=== PATIENT | female | born 1970 | race African-American/Black ===

== ENCOUNTER 2019-09-20 13:25 | Emergency (ER) | payer OTHER ==
[2019-09-20] MEDS ORDERED: Ondansetron PF 4 MG/2 ML Vial ONE (14:20)
[2019-09-20] MEDS ORDERED: Morphine 4 MG/ML VIAL ONE (14:20)
[2019-09-20 14:30] LABS: #Eosinphils 0.1 thou/uL (0.0-0.7); #Lymphocytes 1.7 thou/uL (1.20-3.40); #Monocytes 0.6 thou/uL (0.11-0.59); #Neutrophils 5.1 thou/uL (1.40-6.50); %Basophils 0.4 % (0.0-1.0); %Eosinophils 1.3 % (0.0-10.0); %Monocytes 8.1 % (0.0-10.0); %Neutrophils 67.3 % (42.0-75.0); Hemoglobin 12.6 g/dL (12.0-16.0); Mean Corpuscular HGB CONC 33.6 g/dL (32.0-36.0); Mean Corpuscular Hemoglobin 34.5 pg (27.0-31.0); Mean Platelet Volume 7.2 fL (7.4-10.4); Platelet Count 244 thou/uL (130-400); RBC Distribution Width 14.3 % (11.5-14.5); Red Blood Cell (RBC) Count 3.66 mill/uL (4.20-5.40); White Blood Cell (WBC) Count 7.5 thou/uL (4.8-10.8)
[2019-09-20 14:51] LABS: ALT (SGPT) 19 U/L (8-55); AST (SGOT) 17 U/L (5-34); Albumin 3.7 g/dL (3.5-5.0); Alkaline Phosphatase 72 U/L (40-110); Anion Gap 14 mmol/L (10-20); BUN (Urea Nitrogen) 10 mg/dL (7.0-18.7); Bilirubin, Total 0.6 mg/dL (0.2-1.2); Calc. Creatinine Clearance 0 mL/min (70-130); Calcium 8.9 mg/dL (7.8-10.44); Carbon Dioxide 26 mmol/L (22-29); Chloride 103 mmol/L (98-107); Estimated GFR-MDRD 64; Globulin 5.2 g/dL (2.4-3.5); Glucose 154 mg/dL (70-105); Protein, Total 8.9 g/dL (6.0-8.3); Sodium 139 mmol/L (136-145)
--- NOTE | 2019-09-20 14:54 | ULT ---
EXAM: Right lower extremity venous Doppler PROVIDED CLINICAL HISTORY: Pain FINDINGS: Grayscale and color Doppler sonography with spectral analysis was performed of the right common femor al, femoral, popliteal, posterior tibial, greater saphenous and profunda femoral veins. The evaluated venous structures demonstrate a normal sonographic appearance. IMPRESSION: No sonographic evidence for right lower extremity deep venous thrombosis.
--- NOTE | 2019-09-20 15:13 | RAD ---
EXAM: XR Foot Rt 3 View STANDARD PROVIDED CLINICAL HISTORY: Pain FINDINGS: There is no evidence for fracture or other acute osseous abnormality. Alignment appears anatomic. Silvia nt spaces appear preserved. Postoperative changes involving the right ankle are noted. IMPRESSION: No evidence for an acute osseous abnormality. If there is persistent clinical concern, conservative m anagement and follow-up imaging advised.
[2019-09-20] MEDS ORDERED: HYDROcodone/Acetaminophen 10/325 mg Tablet ONE (16:49)
== END 2019-09-20 17:39 | disposition home or self-care (01) ==
LOC: ERS 13:25
DX: L03.115 Cellulitis of right lower limb (principal); E11.9 Type 2 diabetes mellitus without complications; J45.909 Unspecified asthma, uncomplicated; E66.9 Obesity, unspecified; I10 Essential (primary) hypertension; B20 Human immunodeficiency virus [HIV] disease; F31.9 Bipolar disorder, unspecified; F20.9 Schizophrenia, unspecified; Z87.891 Personal history of nicotine dependence; Z79.899 Other long term (current) drug therapy; Z79.82 Long term (current) use of aspirin; Z79.84 Long term (current) use of oral hypoglycemic drugs
CPT/HCPCS: 80053; 85025; 85652; 86140; 96374; 96375; J2270; J2405

== ENCOUNTER 2019-10-03 14:04 | Inpatient (IN) | payer OTHER ==
[2019-10-03 15:08] LABS: #Lymphocytes 2.1 thou/uL (1.20-3.40); #Monocytes 0.7 thou/uL (0.11-0.59); #Neutrophils 3.4 thou/uL (1.40-6.50); %Basophils 0.8 % (0.0-1.0); %Eosinophils 0.6 % (0.0-10.0); %Lymphocytes 33.3 % (21.0-51.0); %Monocytes 10.9 % (0.0-10.0); %Neutrophils 54.4 % (42.0-75.0); Mean Corpuscular HGB CONC 32.3 g/dL (32.0-36.0); Mean Corpuscular Hemoglobin 33.4 pg (27.0-31.0); Mean Platelet Volume 7.7 fL (7.4-10.4); Platelet Count 391 thou/uL (130-400); RBC Distribution Width 13.8 % (11.5-14.5); Red Blood Cell (RBC) Count 4.17 mill/uL (4.20-5.40); White Blood Cell (WBC) Count 6.2 thou/uL (4.8-10.8)
[2019-10-03] MEDS ORDERED: Cefepime 2 GM VIAL ONE (15:10)
[2019-10-03 15:29] LABS: ALT (SGPT) 29 U/L (8-55); AST (SGOT) 28 U/L (5-34); Albumin 3.7 g/dL (3.5-5.0); Alkaline Phosphatase 70 U/L (40-110); Anion Gap 15 mmol/L (10-20); BUN (Urea Nitrogen) 15 mg/dL (7.0-18.7); Bilirubin, Total 0.5 mg/dL (0.2-1.2); Calc. Creatinine Clearance 0 mL/min (70-130); Calcium 8.9 mg/dL (7.8-10.44); Carbon Dioxide 27 mmol/L (22-29); Chloride 101 mmol/L (98-107); Estimated GFR-MDRD 49; Globulin 5.5 g/dL (2.4-3.5); Glucose 99 mg/dL (70-105); Potassium 3.8 mmol/L (3.5-5.1); Protein, Total 9.2 g/dL (6.0-8.3); Sodium 139 mmol/L (136-145)
--- NOTE | 2019-10-03 15:49 | RAD ---
Exam: XR Foot Rt 3 View STANDARD HISTORY: Extreme right foot pain. Patient recently diagnosed with right foot cellulitis. COMPARISON: 09/20/2019 FINDINGS: Postoperative changes again involving the right ankle are seen and unchanged. No fracture or dislocation is identified. Mild degenerative changes are seen involving the midfoot. N o osseous destruction is visualized. Subcutaneous soft tissue swelling is seen at the dorsal medial aspect of the midfoot and at the ankle. IMPRESSION: Subcutaneous soft tissue swelling which may be related to patient's history of cellulitis in the lily ect clinical scenario. No acute osseous abnormality is seen, and views of the right foot are overall unchanged compared to the recent study.
--- NOTE | 2019-10-03 15:51 | RAD ---
CHEST 1 VIEW: Date: 10/03/2019 HISTORY: Altered mental status. Right foot cellulitis. FINDINGS: Large body habitus considerably lowers the sensitivity of this study. Minimal diffuse increased opaci ty changes overlying the right and left lower lung zones, but this appears to be stable when compared to the 01/11/2014 study. No evidence for significant new process. IMPRESSION: Some minimal nonspecific increased markings and increased density over the infrahilar regions bilater ally, but showing little change from the prior study. If patient has symptoms of pneumonia, I would s uggest consideration for short-term follow-up study. POS: [facility]
[2019-10-03 15:56] LABS: Bacteria/HPF None Seen HPF (None Seen); Bilirubin Negative (Negative); Blood, Urine Negative (Negative); Clarity Clear (Clear); Glucose, Urine (Dipstick) Normal (Negative); Leukocyte Negative Leu/uL (Negative); Nitrite Negative (Negative); Protein, Urine (Dipstick) 70 mg/dL (Neg-Trace); RBC/HPF 0-3 HPF (0-3); WBC/HPF 0-3 HPF (0-3)
[2019-10-03] MEDS ORDERED: Morphine 4 MG/ML VIAL ONE (16:29)
[2019-10-03] MEDS ORDERED: Ondansetron ODT 4 MG TAB SL PRN (19:45)
[2019-10-03] MEDS ORDERED: Ondansetron PF 4 MG/2 ML Vial IVP PRN (19:45)
[2019-10-03] MEDS ORDERED: cefTRIAXone\\ROCEPHIN 2 GM in Sodium Chloride 0.9% 100 ML IVPB SCH (20:00)
[2019-10-03 20:27] VITALS: BMI 70.1
--- NOTE | 2019-10-03 20:37 | PDOC.HHP ---
Hospitalist HPI - History of Present Illness R foot pain History of Present Illness: Patient is a 49 year old female with PMH asthma, HIV, hepatitis C, HTN, T2DM, seizure disorder who presents to ED for R foot pain, recently diagnosed with R foot cellulitis. She was being treated as outpatient with clindamycin. Reports nausea, vomiting, cough. In ED they also noted open abdominal wound in midline which patient reports is C section scar, she was unaware of wound. Foot w/ erythema, edema, patient recieved vancomycin and cefepime and recommended for admission. She has history of HCV, HIV and distant drug abuse which she has quit for last 6 years. On HIV meds, WBC 6.2. Hospitalist ROS - Review of Systems Constitutional: denies: fever, chills, sweats, weakness, malaise, other Eyes: denies: pain, vision change, conjunctivae inflammation, eyelid inflammation, redness, other ENT: denies: ear pain, ear discharge, nose pain, nose discharge, nose congestion , mouth pain, mouth swelling, throat pain, throat swelling, other Respiratory: denies: cough, dry, shortness of breath, hemoptysis, SOB with excertion, pleuritic pain, sputum, wheezing, other Cardiovascular: denies: chest pain, palpitations, orthopnea, paroxysmal noc. dyspnea, edema, light headedness, other Gastrointestinal: denies: nausea, vomiting, abdominal pain, diarrhea, constipation, melena, hematochezia, other Genitourinary: denies: dysuria, frequency, incontinence, hematuria, retention, other Musculoskeletal: reports: foot pain Skin: reports: rash (on R foot), lesions. denies: kate, bruising, other Neurological: denies: weakness, numbness, incoordination, change in speech, confusion, seizures, other All other systems reviewed; all pertinent +/- noted in HPI/Subj - Medication Medications: Active Medications Generic Name Dose Route Start Last Admin Trade Name Freq PRN Reason Stop Dose Admin Ceftriaxone Sodium 2 gm/ 100 mls @ 200 mls/hr 10/03/19 20:00 10/03/19 20:07 Sodium Chloride IVPB 10/04/19 05:20 100 mls Q24HR MELITA Administration Ondansetron HCl 4 mg 10/03/19 19:45 10/03/19 20:07 Zofran IVP 10/04/19 05:20 4 mg Q6H PRN Administration Nausea/Vomiting cyclobenzaprine SunOct 03, 2019 16:36 BEVERLY Gutierrez [place] Brooke tablet : Strength - 10 mg : ORAL Patient Dose: 1 tab(s) Oral once a day (at bedtime). Aceta-Codeine SunOct 03, 2019 16:37 BEVERLY Gutierrez [place] Brooke tablet : Strength - 300 mg-30 mg : ORAL Patient Dose: 1 tab(s) Oral every 4 hours prn. amLODIPine SunOct 03, 2019 16:39 BEVERLY Gutierrez [place] Brooke TABLET : Strength - 5 mg : ORAL Patient Dose: 5 mg Oral once a day. lisinopril SunOct 03, 2019 16:39 BEVERLY Gutierrez [place] TABLET : Strength - 10 mg : ORAL Patient Dose: 20 mg Oral once a day. glyBURIDE oral SunOct 03, 2019 16:39 BEVERLY Gutierrez [place] TABLET : Strength - 5 mg : ORAL Patient Dose: 10 mg Oral 2 times a day. metFORMIN SunOct 03, 2019 16:39 BEVERLY Gutierrez [place] Brooke tablet : Strength - 850 mg : ORAL Patient Dose: 1 tab(s) Oral. Aspirin [facility] SunOct 03, 2019 16:39 BEVERLY Gutierrez [place] Brooke TABLET, CHEWABLE : Strength - 81 mg : ORAL Patient Dose: 1 tab(s) Oral once a day. pantoprazole oral SunOct 03, 2019 16:39 BEVERLY Gutierrez [place] Brooke TABLET, DELAYED RELEASE (ENTERIC COATED) : Strength - 40 mg : ORAL Patient Dose: 1 tab(s) Oral once a day. clindamycin HCl SunOct 03, 2019 16:39 BEVERLY Gutierrez [place] Brooke CAPSULE : Strength - 150 mg : ORAL Patient Dose: 1 tab(s) Oral every 6 hours. ibuprofen SunOct 03, 2019 16:40 BEVERLY Gutierrez [place] Brooke tablet : Strength - 800 mg : ORAL Patient Dose: 1 tab(s) Oral. atorvastatin SunOct 03, 2019 16:41 BEVERLY Gutierrez [place] Brooke tablet : Strength - 40 mg : ORAL Patient Dose: 1 tab(s) Oral once a day. Genvoya SunOct 03, 2019 16:42 BEVERLY Gutierrez [place] Brooke tablet : Strength - 150 mg-150 mg-200 mg-10 mg : ORAL Patient Dose: 1 tab(s) Oral once a day. Hospitalist History - Past Medical History Other Medical History: asthma, HIV, hepatitis C, HTN, T2DM, seizure disorder - Past Surgical History Other Surgical History: Surgical history of section, Surgical history of orthopedic surgery, right ankle, Notes: plate, Surgical history of cholecystectomy, Surgical history of tubal ligation. 09/20/19. - Family History Family History: reports: no pertinent history - Social History Other Social History: Patient denies alcohol use, , Patient is a former drug user, abused cocaine, Drug history notes: DRUG FREE FOR 6 YEARS, DIPS SNUFF/ NO SMOKING - PAST SMOKER 19 YEARS - Exam General Appearance: NAD, awake alert Eye: PERRL, anicteric sclera ENT: normocephalic atraumatic, no oropharyngeal lesions, moist mucosa Neck: supple, symmetric, no JVD, no thyromegaly, no lymphadenopathy, no carotid bruit Heart: RRR, no murmur, no gallops, no rubs, normal peripheral pulses Respiratory: CTAB, no wheezes, no rales, no ronchi, normal chest expansion, no tachypnea, normal percussion Gastrointestinal: soft, non-tender, non-distended, normal bowel sounds, no palpable masses, no hepatomegaly, no splenomegaly, no bruit Extremities: no cyanosis, no clubbing, no edema Extremities - other findings: R foot w/ jessica rash on dorsum no ulcer per patient not spreading Skin: normal turgor, no lesions, no rashes Neurological: cranial nerve grossly intact, normal sensation to touch, no weakness, no focal deficits, no new deficit Musculoskeletal: normal tone, normal strength, no muscle wasting Psychiatric: normal affect, normal behavior, A&O x 3 Hospitalist Results - Labs Result Diagrams: 10/03/19 14:54 10/03/19 14:54 Lab results: WBC 6.2 thou/uL (4.8-10.8) 10/03/19 14:54 Hgb 14.0 g/dL (12.0-16.0) 10/03/19 14:54 Hct 43.2 % (36.0-47.0) 10/03/19 14:54 MCV 103.0 fL (78.0-98.0) H 10/03/19 14:54 Plt Count 391 thou/uL (130-400) 10/03/19 14:54 Neutrophils % 54.4 % (42.0-75.0) 10/03/19 14:54 Sodium 139 mmol/L (136-145) 10/03/19 14:54 Potassium 3.8 mmol/L (3.5-5.1) 10/03/19 14:54 Chloride 101 mmol/L (98-107) 10/03/19 14:54 Carbon Dioxide 27 mmol/L (22-29) 10/03/19 14:54 BUN 15 mg/dL (7.0-18.7) 10/03/19 14:54 Creatinine 1.38 mg/dL (0.6-1.1) H 10/03/19 14:54 Glucose 99 mg/dL (70-105) 10/03/19 14:54 Lactic Acid 1.0 mmol/L (0.5-2.2) 10/03/19 18:00 Calcium 8.9 mg/dL (7.8-10.44) 10/03/19 14:54 Total Bilirubin 0.5 mg/dL (0.2-1.2) 10/03/19 14:54 AST 28 U/L (5-34) 10/03/19 14:54 ALT 29 U/L (8-55) 10/03/19 14:54 Alkaline Phosphatase 70 U/L (40-110) 10/03/19 14:54 Serum Total Protein 9.2 g/dL (6.0-8.3) H 10/03/19 14:54 Albumin 3.7 g/dL (3.5-5.0) 10/03/19 14:54 Urine Ketones Negative mg/dL (Negative) 10/03/19 15:22 Urine Blood Negative (Negative) 10/03/19 15:22 Urine Nitrite Negative (Negative) 10/03/19 15:22 Ur Leukocyte Esterase Negative Daljit/uL (Negative) 10/03/19 15:22 Urine RBC 0-3 HPF (0-3) 10/03/19 15:22 Urine WBC 0-3 HPF (0-3) 10/03/19 15:22 Ur Squamous Epith Cells 4-6 HPF (0-3) A 10/03/19 15:22 Urine Bacteria None Seen HPF (None Seen) 10/03/19 15:22 Additional comment: VITAL SIGNS SunOct 03, 2019:06 BEVERLY Gutierrez, Mara Barnett BP: 118/79 MAP: 92 Pulse: 103 Resp: 20 Temp: 99.3 (Axillary) Pain: 3 O2 sat: 93 on (Room Air) Time: 10/03/2019 18:06. RADIOLOGY SunOct 03, 2019 15:53 MD Ayla, Gilbert XR Foot Rt 3 View STANDARD Observe DT: SunOct 03, 2019 14:37 [email or web address] Exam: XR Foot Rt 3 View STANDARD HISTORY: Extreme right foot pain. Patient recently diagnosed with right foot cellulitis. COMPARISON: 09/20/2019 FINDINGS: Postoperative changes again involving the right ankle are seen and unchanged. No fracture or dislocation is identified. Mild degenerative changes are seen involving the midfoot. N o osseous destruction is visualized. Subcutaneous soft tissue swelling is seen at the dorsal medial aspect of the midfoot and at the ankle. IMPRESSION: Subcutaneous soft tissue swelling which may be related to patients history of cellulitis in the lily ect clinical scenario. No acute osseous abnormality is seen, and views of the right foot are overall unchanged compared to the recent study. - EKG Interpretation EKG: NSR 98 bpm nonspecific t wave changes Hospitalist H&P A/P - Plan Plan: Patient is a 49 year old female with PMH asthma, HIV, hepatitis C, HTN, T2DM, seizure disorder who presents to ED for R foot pain. # persistent R foot nonpurulent cellulitis - stable in appearance but failing to resolve and with severe pain limiting ability to manage as outpatient, patient has been on 2 weeks of PO clindamycin without improvement. - admit to floor - CT R foot w/ contrast - follow up CD4 and HIV viral load, if under [id number] consider ID consult - yady rash w/ skin marker and monitor for growth daily - continue vancomycin and unasyn # DM - continue metformin, ssi # dehisced abdominal wound - from C section - consult general surgery and wound care team # HIV - continue home HAART, follow up cd4/viral load # HTN - continue home meds # history of drug abuse - deescalate pain meds in reasonable amont of time expected for cellulitis recovery
[2019-10-03] MEDS ORDERED: Ibuprofen 800 MG TAB PO PRN (21:58)
[2019-10-03] MEDS ORDERED: Dextrose 50% Abboject 50 ML SYRINGE SLOW IVP PRN (22:26)
[2019-10-03] MEDS ORDERED: Dextrose 5% in Water 1,000 ML IV PRN (22:26)
[2019-10-03] MEDS ORDERED: Bisacodyl 5 MG TAB PO PRN (22:32)
[2019-10-03] MEDS ORDERED: Acetaminophen 325 MG TAB PO PRN (22:32)
[2019-10-03] MEDS ORDERED: Senokot S 8.6-50 MG TAB PO PRN (22:32)
[2019-10-03] MEDS ORDERED: Vancomycin HCl 1 GM in Sodium Chloride 0.9% 250 ML 300 ML IVPB SCH (22:45)
[2019-10-03] MEDS: Ampicillin/Sulbactam 3 GM in Sodium Chloride 0.9% 100 ML IVPB SCH (23:43)
[2019-10-04] MEDS: Ampicillin/Sulbactam 3 GM in Sodium Chloride 0.9% 100 ML IVPB SCH ×3 (05:25→21:15)
[2019-10-04 06:21] LABS: #Basophils 0.1 thou/uL (0.0-0.2); #Lymphocytes 1.4 thou/uL (1.20-3.40); #Monocytes 0.6 thou/uL (0.11-0.59); %Basophils 1.4 % (0.0-1.0); %Eosinophils 0.4 % (0.0-10.0); %Lymphocytes 34.1 % (21.0-51.0); %Monocytes 13.6 % (0.0-10.0); %Neutrophils 50.6 % (42.0-75.0); Hemoglobin 11.6 g/dL (12.0-16.0); Mean Corpuscular HGB CONC 31.5 g/dL (32.0-36.0); Mean Platelet Volume 7.5 fL (7.4-10.4); Platelet Count 348 thou/uL (130-400); Red Blood Cell (RBC) Count 3.53 mill/uL (4.20-5.40)
[2019-10-04 06:45] LABS: Anion Gap 13 mmol/L (10-20); BUN (Urea Nitrogen) 16 mg/dL (7.0-18.7); Calc. Creatinine Clearance 170 mL/min (70-130); Calcium 7.6 mg/dL (7.8-10.44); Carbon Dioxide 24 mmol/L (22-29); Chloride 105 mmol/L (98-107); Estimated GFR-MDRD 59; Glucose 121 mg/dL (70-105); Potassium 3.7 mmol/L (3.5-5.1); Sodium 138 mmol/L (136-145)
--- NOTE | 2019-10-04 08:22 | RAD ---
PORTABLE CHEST ONE VIEW: HISTORY: Hypoxia. Chest pain. COMPARISON: 10/03/2019 FINDINGS: Large body habitus lowers the sensitivity of this study. There is bilateral vascular congestion. No c onfluent pneumonia or overt pleural effusion. IMPRESSION: Bilateral vascular congestion. Exam limited by large body habitus. POS: [facility]
[2019-10-04] MEDS ORDERED: glyBURIDE 5 MG TAB PO SCH (09:00)
[2019-10-04] MEDS ORDERED: metFORMIN 850 MG TAB PO SCH (09:00)
--- NOTE | 2019-10-04 10:03 | CT ---
CT RIGHT LOWER EXTREMITY WITH IV CONTRAST: HISTORY: Cellulitis for two weeks. History of prior ankle surgery. FINDINGS: There is some diffuse subcutaneous fat stranding around the foot, evidence for cellulitis versus nons pecific edema. No evidence for a drainable abscess. Calcaneal plantar and Achilles enthesophytes. Met al plate and screws stabilize the lateral malleolus with an internal fixation screw noted within the distal tibia, which is broken off in the tibia but stable from prior plain film. No acute fracture or dislocation or other significant acute osseous process. IMPRESSION: 1. Nonspecific diffuse subcutaneous edema/cellulitis. 2. Arthrosis and degenerative changes. 3. Postoperative changes of the ankle and distal fibula. 4. No drainable abscess. POS: [facility]
[2019-10-04] MEDS: Aspirin 81 mg Enteric Coated Tablet PO SCH (10:29)
[2019-10-04] MEDS: Atorvastatin Calcium 40 MG TAB PO SCH (10:29)
[2019-10-04] MEDS: Amlodipine 5 MG TAB PO SCH (10:30)
[2019-10-04] MEDS: HYDROcodone/Acetaminophen 5/325 mg Tablet PO PRN ×3 (10:31→20:59)
[2019-10-04] MEDS: Enoxaparin Sodium 40 MG/0.4 ML SYRINGE SC SCH (10:33)
[2019-10-04] MEDS ORDERED: Iopamidol-370 76% 500 ML 1 ML ONE (14:38)
--- NOTE | 2019-10-04 15:01 | PDOC.HOSPP ---
- Subjective Subjective: Seen and examined. Lower extremity wounds with cellulitis. Reviewed CT scan and there is no trainable abscess or obvious infection the bone. Patient's body habitus would limit MRI. There is also a wound on her abdomen inferior to the umbilicus there is a large skin crease and fold and there is a foul-smelling sticky consistency in between the creases. When spread apart there is a minor separation of the skin that seems very superficial. Surgery and wound care consultation has been requested. - Objective Vital Signs & Weight: Vital Signs (12 hours) Temp Pulse Resp BP Pulse Ox 10/04/19 11:29 97.9 F 90 20 121/79 92 L 10/04/19 07:24 97.5 F L 88 20 106/68 91 L 10/04/19 04:00 97.9 F 96 20 103/67 Weight Admit Weight 408 lb 11.2 oz Weight 408 lb 11.2 oz I&O: 10/03/19 10/04/19 10/05/19 06:59 06:59 06:59 Intake Total 500 Balance 500 Result Diagrams: 10/04/19 05:41 10/04/19 05:41 Additional Labs: Accuchecks 10/04/19 10/04/19 11:29 04:31 POC Glucose 153 H 127 H Radiology Reviewed by me: Yes Hospitalist ROS - Review of Systems All other systems reviewed; all pertinent +/- noted in HPI/Subj - Medication Medications: Active Medications Generic Name Dose Route Start Last Admin Trade Name Freq PRN Reason Stop Dose Admin Hydrocodone Bitart/Acetaminophen 2 tab 10/03/19 22:32 10/04/19 10:31 Byron 5/325 PO 2 tab Q4H PRN Administration Severe Pain (7-10) Amlodipine Besylate 5 mg 10/04/19 09:00 10/04/19 10:30 Norvasc PO 5 mg DAILY MELITA Administration Aspirin 81 mg 10/04/19 09:00 10/04/19 10:29 Ecotrin PO 81 mg DAILY MELITA Administration Atorvastatin Calcium 40 mg 10/04/19 09:00 10/04/19 10:29 Lipitor PO 40 mg DAILY MELITA Administration Enoxaparin Sodium 40 mg 10/04/19 09:00 10/04/19 10:33 Lovenox SC 40 mg 0900 MELITA Administration Ampicillin Sodium/Sulbactam 100 mls @ 200 mls/hr 10/03/19 23:59 10/04/19 05: 25 Sodium 3 gm/ Sodium Chloride IVPB 100 mls Q6HR MELITA Administration Pantoprazole Sodium 40 mg 10/04/19 09:00 10/04/19 10:30 Protonix PO 40 mg DAILY MELITA Administration - Exam General Appearance: NAD, awake alert Eye: anicteric sclera ENT: normocephalic atraumatic, moist mucosa Neck: supple, symmetric, no lymphadenopathy Heart: no murmur, no gallops, no rubs Respiratory: CTAB, no wheezes, no rales, no ronchi, normal chest expansion, no tachypnea Gastrointestinal: soft, non-tender, non-distended, no guarding, no rigidity Gastrointestinal - other findings: Superficial linear breakdown of skin at the crease where linea alba present Extremities: 1+ LE edema Skin: no lesions, no rashes Skin - other findings: Foot cellulitis seems smaller than drawn on markings Neurological: cranial nerve grossly intact, no focal deficits Musculoskeletal: generalized weakness Psychiatric: normal affect, normal behavior, A&O x 3 Hosp A/P (1) Cellulitis and abscess of foot Code(s): L03.119 - CELLULITIS OF UNSPECIFIED PART OF LIMB; L02.619 - CUTANEOUS ABSCESS OF UNSPECIFIED FOOT Status: Acute (2) Skin wound from surgical incision Code(s): T14.8XXA - OTHER INJURY OF UNSPECIFIED BODY REGION, INITIAL ENCOUNTER Status: Acute (3) HIV (human immunodeficiency virus infection) Status: Acute (4) Hepatitis C antibody positive in blood Code(s): R76.8 - OTHER SPECIFIED ABNORMAL IMMUNOLOGICAL FINDINGS IN SERUM Status: Acute (5) CKD (chronic kidney disease) stage 3, GFR 30-59 ml/min Status: Chronic (6) DM2 (diabetes mellitus, type 2) Status: Chronic (7) HTN (hypertension) Code(s): I10 - ESSENTIAL (PRIMARY) HYPERTENSION Status: Chronic Qualifiers: Hypertension type: essential hypertension Qualified Code(s): I10 - Essential (primary) hypertension (8) Morbid obesity Code(s): E66.01 - MORBID (SEVERE) OBESITY DUE TO EXCESS CALORIES Status: Chronic
--- NOTE | 2019-10-04 16:48 | PDOC.GSCN ---
Surgery Consult: HPI - Consult details Date: 10/04/19 Time: 11:30 Reason for consult: wound care History of present illness: 10/04/19 16:47 49yo morbidly obese female admitted for right foot pain noted to have a tear in a crease of her pannus. The patient was unaware of the wound, and denies any traumatic incidents. Surgery Consult: ROS - Review of Systems All systems: 10 systems reviewed and no additional complaints unless stated below. Surgery Consult: PMH Past Medical History: Diabetes Super morbid obesity asthma HIV hepatitis C hypertension seizure disorder Past Surgical History: , cholecystectomy, bone spur removal right foot, tubal ligation - Past Family History Family history: reviewed and not pertinent - Past Social History Smoking Status: Former smoker Alcohol Use: none Drug Use History: cocaine, other (history of cocaine abuse) Surgery Consult: Exam - Vital signs Vital signs: Vital Signs - Most Recent Temp Pulse Resp BP Pulse Ox 97.8 F 94 18 119/78 98 10/04/19 16:00 10/04/19 16:00 10/04/19 16:00 10/04/19 16:00 10/04/19 16:00 - Physical Exam General: obese Eye: normal ocular movement, PERRL Neck: no lymphadectomy, no masses, no isauro distention, trachea midline Respiratory: clear to auscultation Abdomen: non tender, soft, other (bilobed pannus from previous midline incision. Superficial skin tear at crease with no evidence of infection.) Hernia: none Integumentary: no abnormal pigmentation, no rash Neurologic: normal coordination, normal sensation Musculoskeletal: other (normal bulk and tone) Psychiatric: oriented to time, oriented to person, oriented to place Surgery Consult: Meds - Medications Medications: Current Medications Acetaminophen (Tylenol) 650 mg PO Q4H PRN PRN Reason: Headache/Fever/Mild Pain (1-3) Hydrocodone Bitart/Acetaminophen ([place] 5/325) 1 tab PO Q4H PRN PRN Reason: Moderate Pain (4-6) Hydrocodone Bitart/Acetaminophen ([place] 5/325) 2 tab PO Q4H PRN PRN Reason: Severe Pain (7-10) Last Admin: 10/04/19 10:31 Dose: 2 tab Amlodipine Besylate (Norvasc) 5 mg PO DAILY MELITA Last Admin: 10/04/19 10:30 Dose: 5 mg Aspirin (Ecotrin) 81 mg PO DAILY [facility] Last Admin: 10/04/19 10:29 Dose: 81 mg Atorvastatin Calcium (Lipitor) 40 mg PO DAILY [facility] Last Admin: 10/04/19 10:29 Dose: 40 mg Bisacodyl (Dulcolax) 10 mg PO DAILYPRN PRN PRN Reason: Constipation Cyclobenzaprine HCl (Flexeril) 10 mg PO HS PRN PRN Reason: Muscle Spasm Dextrose/Water (Dextrose 50%) 25 gm SLOW IVP PRN PRN PRN Reason: Hypoglycemia Enoxaparin Sodium (Lovenox) 40 mg SC 0900 [facility] Last Admin: 10/04/19 10:33 Dose: 40 mg Glucagon (Glucagon) 1 mg IM PRN PRN PRN Reason: Hypoglycemia Dextrose/Water (D5w) 1,000 mls @ 0 mls/hr IV .Q0M PRN PRN Reason: Hypoglycemia Ampicillin Sodium/Sulbactam (Sodium 3 gm/ Sodium Chloride) 100 mls @ 200 mls/ hr IVPB Q6HR [facility] Last Admin: 10/04/19 15:08 Dose: 100 mls Vancomycin HCl 2 gm/ Sodium (Chloride) 500 mls @ 250 mls/hr IVPB 1500 [facility] Stop: 10/09/19 23:59 Insulin Human Lispro (Humalog) 0 units SC .MILD SLIDING SCALE PRN PRN Reason: Mild Correctional Scale Lisinopril (Zestril) 20 mg PO QPM [facility] Miscellaneous Medication (Pharmacy To Dose) 1 each IVPB PRN PRN PRN Reason: Pharmacy to dose Stop: 10/09/19 23:59 Pantoprazole Sodium (Protonix) 40 mg PO DAILY [facility] Last Admin: 10/04/19 10:30 Dose: 40 mg Elviteg/Cob/Emtri/Tenof Alafen [ Genvoya Tablet] 1 each PO HS [facility] Senna/Docusate Sodium (Senokot S) 2 tab PO BIDPRN PRN PRN Reason: Constipation - Allergies Allergies/Adverse Reactions: Allergies Allergy/AdvReac Type Severity Reaction Status Date / Time No Known Drug Allergies Allergy Verified 07/09/16 22:35 Surgery Consult: Results - Labs Result Diagrams: 10/04/19 05:41 10/04/19 05:41 Lab results: Laboratory Results WBC 4.0 thou/uL (4.8-10.8) L 10/04/19 05:41 RBC 3.53 mill/uL (4.20-5.40) L 10/04/19 05:41 Hgb 11.6 g/dL (12.0-16.0) L 10/04/19 05:41 Hct 36.8 % (36.0-47.0) 10/04/19 05:41 MCV 104.0 fL (78.0-98.0) H 10/04/19 05:41 MCH 33.0 pg (27.0-31.0) H 10/04/19 05:41 MCHC 31.5 g/dL (32.0-36.0) L 10/04/19 05:41 RDW 14.0 % (11.5-14.5) 10/04/19 05:41 Plt Count 348 thou/uL (130-400) 10/04/19 05:41 MPV 7.5 fL (7.4-10.4) 10/04/19 05:41 Neutrophils % 50.6 % (42.0-75.0) 10/04/19 05:41 Lymphocytes % 34.1 % (21.0-51.0) 10/04/19 05:41 Monocytes % 13.6 % (0.0-10.0) H 10/04/19 05:41 Eosinophils % 0.4 % (0.0-10.0) 10/04/19 05:41 Basophils % 1.4 % (0.0-1.0) H 10/04/19 05:41 Neutrophils # 2.0 thou/uL (1.40-6.50) 10/04/19 05:41 Lymphocytes # 1.4 thou/uL (1.20-3.40) 10/04/19 05:41 Monocytes # 0.6 thou/uL (0.11-0.59) H 10/04/19 05:41 Eosinophils # 0.0 thou/uL (0.0-0.7) 10/04/19 05:41 Basophils # 0.1 thou/uL (0.0-0.2) 10/04/19 05:41 Sodium 138 mmol/L (136-145) 10/04/19 05:41 Potassium 3.7 mmol/L (3.5-5.1) 10/04/19 05:41 Chloride 105 mmol/L (98-107) 10/04/19 05:41 Carbon Dioxide 24 mmol/L (22-29) 10/04/19 05:41 Anion Gap 13 mmol/L (10-20) 10/04/19 05:41 BUN 16 mg/dL (7.0-18.7) 10/04/19 05:41 Creatinine 1.17 mg/dL (0.6-1.1) H 10/04/19 05:41 Estimated GFR (MDRD) 59 10/04/19 05:41 Glucose 121 mg/dL (70-105) H 10/04/19 05:41 POC Glucose 153 mg/dL (70-110) H 10/04/19 11:29 Lactic Acid 1.0 mmol/L (0.5-2.2) 10/03/19 18:00 Calcium 7.6 mg/dL (7.8-10.44) L 10/04/19 05:41 Total Bilirubin 0.5 mg/dL (0.2-1.2) 10/03/19 14:54 AST 28 U/L (5-34) 10/03/19 14:54 ALT 29 U/L (8-55) 10/03/19 14:54 Alkaline Phosphatase 70 U/L (40-110) 10/03/19 14:54 B-Natriuretic Peptide Less than 10.0 pg/mL (0-100) 10/04/19 05:41 Serum Total Protein 9.2 g/dL (6.0-8.3) H 10/03/19 14:54 Albumin 3.7 g/dL (3.5-5.0) 10/03/19 14:54 Globulin 5.5 g/dL (2.4-3.5) H 10/03/19 14:54 Albumin/Globulin Ratio 0.7 g/dL (1.2-2.2) L 10/03/19 14:54 Urine Color Yellow (Yellow) 10/03/19 15:22 Urine Clarity Clear (Clear) 10/03/19 15:22 Urine pH 5.5 (5.0-9.0) 10/03/19 15:22 Ur Specific [place] 1.029 (1.002-1.036) 10/03/19 15:22 Urine Protein 70 mg/dL (Neg-Trace) A 10/03/19 15:22 Urine Glucose (UA) Normal mg/dL (Negative) 10/03/19 15:22 Urine Ketones Negative mg/dL (Negative) 10/03/19 15:22 Urine Blood Negative (Negative) 10/03/19 15:22 Urine Nitrite Negative (Negative) 10/03/19 15:22 Urine Bilirubin Negative (Negative) 10/03/19 15:22 Urine Urobilinogen 2.0 mg/dL (Less than 2) A 10/03/19 15:22 Ur Leukocyte Esterase Negative Daljit/uL (Negative) 10/03/19 15:22 Urine RBC 0-3 HPF (0-3) 10/03/19 15:22 Urine WBC 0-3 HPF (0-3) 10/03/19 15:22 Ur Squamous Epith Cells 4-6 HPF (0-3) A 10/03/19 15:22 Urine Bacteria None Seen HPF (None Seen) 10/03/19 15:22 Hyaline Casts 4-6 LPF (0-3) A 10/03/19 15:22 Granular Casts 7-10 LPF (None Seen) A 10/03/19 15:22 Surgery Consult: A/P - Problem (1) Skin wound from surgical incision Current Visit: Yes Code(s): T14.8XXA - OTHER INJURY OF UNSPECIFIED BODY REGION , INITIAL ENCOUNTER Status: Acute - Plan Plan: 49[facility]. No surgical indication. Consider wound care consultation for dressing recommendations to maintain cleanliness. Will follow peripherally. Please call for any further questions.
[2019-10-04] MEDS: Lisinopril 20 MG TAB PO SCH (20:59)
[2019-10-04] MEDS: Elviteg/Cob/Emtri/Tenof Alafen [Genvoya Tablet] PO SCH (20:59)
[2019-10-05] MEDS: Ampicillin/Sulbactam 3 GM in Sodium Chloride 0.9% 100 ML IVPB SCH ×4 (00:50→17:32)
[2019-10-05] MEDS: HYDROcodone/Acetaminophen 5/325 mg Tablet PO PRN ×4 (03:47→20:16)
[2019-10-05 06:37] LABS: Anion Gap 15 mmol/L (10-20); BUN (Urea Nitrogen) 14 mg/dL (7.0-18.7); Calc. Creatinine Clearance 178 mL/min (70-130); Calcium 7.5 mg/dL (7.8-10.44); Carbon Dioxide 23 mmol/L (22-29); Chloride 104 mmol/L (98-107); Estimated GFR-MDRD 63; Glucose 170 mg/dL (70-105); Sodium 138 mmol/L (136-145)
[2019-10-05] MEDS: Amlodipine 5 MG TAB PO SCH (08:42)
[2019-10-05] MEDS: Aspirin 81 mg Enteric Coated Tablet PO SCH (08:42)
[2019-10-05] MEDS: Atorvastatin Calcium 40 MG TAB PO SCH (08:42)
[2019-10-05] MEDS: Enoxaparin Sodium 40 MG/0.4 ML SYRINGE SC SCH (08:42)
--- NOTE | 2019-10-05 11:17 | PDOC.HOSPP ---
- Subjective Subjective: Seen and examined. Patient having severe foot pain, she is not been staying ahead of the pain with oral pain medications. Patient responding to antibiotics. She is alert and oriented times three and has fair insight and clinical condition. Patient has been seen by surgery and recommended no surgical intervention. CT scan of the foot with cellulitis, though no trainable abscesses. Patient improving on maximal medical therapy. - Objective Vital Signs & Weight: Vital Signs (12 hours) Temp Pulse Resp BP BP Pulse Ox 10/05/19 08:42 91 105/67 10/05/19 07:38 97.7 F 91 18 105/67 95 10/05/19 04:22 97 96 Weight Admit Weight 408 lb 11.2 oz Weight 408 lb 11.2 oz I&O: 10/04/19 10/05/19 10/06/19 06:59 06:59 06:59 Intake Total 500 Balance 500 Result Diagrams: 10/04/19 05:41 10/05/19 05:51 Additional Labs: Accuchecks 10/05/19 10/04/19 10/04/19 04:25 19:51 16:19 POC Glucose 176 H 184 H 144 H 10/04/19 11:29 POC Glucose 153 H Radiology Reviewed by me: Yes Hospitalist ROS - Review of Systems All other systems reviewed; all pertinent +/- noted in HPI/Subj - Medication Medications: Active Medications Generic Name Dose Route Start Last Admin Trade Name Freq PRN Reason Stop Dose Admin Hydrocodone Bitart/Acetaminophen 2 tab 10/03/19 22:32 10/05/19 09:59 [place] 5/325 PO 2 tab Q4H PRN Administration Severe Pain (7-10) Amlodipine Besylate 5 mg 10/04/19 09:00 10/05/19 08:42 Norvasc PO 5 mg DAILY MELITA Administration Aspirin 81 mg 10/04/19 09:00 10/05/19 08:42 Ecotrin PO 81 mg DAILY MELITA Administration Atorvastatin Calcium 40 mg 10/04/19 09:00 10/05/19 08:42 Lipitor PO 40 mg DAILY MELITA Administration Enoxaparin Sodium 40 mg 10/04/19 09:00 10/05/19 08:42 Lovenox SC 40 mg 0900 MELITA Administration Ampicillin Sodium/Sulbactam 100 mls @ 200 mls/hr 10/03/19 23:59 10/05/19 06: 16 Sodium 3 gm/ Sodium Chloride IVPB 100 mls Q6HR MELITA Administration Vancomycin HCl 2 gm/ Sodium 500 mls @ 250 mls/hr 10/04/19 15:00 10/04/19 17: 25 Chloride IVPB 10/09/19 23:59 500 mls 1500 MELITA Administration Lisinopril 20 mg 10/04/19 21:00 10/04/19 20:59 Zestril PO 20 mg QPM MELITA Administration Pantoprazole Sodium 40 mg 10/04/19 09:00 10/05/19 08:41 Protonix PO 40 mg DAILY MELITA Administration Elviteg/Cob/Emtri/ 1 each 10/04/19 21:00 10/04/19 20:59 Tenof Alafen [ PO 1 each Genvoya Tablet] HS MELITA Administration - Exam General Appearance: NAD, awake alert Eye: anicteric sclera ENT: normocephalic atraumatic, moist mucosa Neck: supple, no lymphadenopathy Heart: no murmur, no gallops, no rubs Respiratory: CTAB, no wheezes, no rales, no ronchi, normal chest expansion Respiratory - other findings: Deminished breath sounds globally secondary to body habitus Gastrointestinal: soft, non-tender, no guarding, no rigidity Extremities: 1+ LE edema Skin - other findings: Cellulitis of foot area of induration less than drawn on marking -resolving Neurological: cranial nerve grossly intact, no focal deficits Musculoskeletal: generalized weakness Psychiatric: normal affect, normal behavior, A&O x 3 Hosp A/P (1) Cellulitis and abscess of foot Code(s): L03.119 - CELLULITIS OF UNSPECIFIED PART OF LIMB; L02.619 - CUTANEOUS ABSCESS OF UNSPECIFIED FOOT Status: Acute (2) Skin wound from surgical incision Code(s): T14.8XXA - OTHER INJURY OF UNSPECIFIED BODY REGION, INITIAL ENCOUNTER Status: Acute (3) HIV (human immunodeficiency virus infection) Status: Acute (4) Hepatitis C antibody positive in blood Code(s): R76.8 - OTHER SPECIFIED ABNORMAL IMMUNOLOGICAL FINDINGS IN SERUM Status: Acute (5) CKD (chronic kidney disease) stage 3, GFR 30-59 ml/min Status: Chronic (6) DM2 (diabetes mellitus, type 2) Status: Chronic (7) HTN (hypertension) Code(s): I10 - ESSENTIAL (PRIMARY) HYPERTENSION Status: Chronic Qualifiers: Hypertension type: essential hypertension Qualified Code(s): I10 - Essential (primary) hypertension (8) Morbid obesity Code(s): E66.01 - MORBID (SEVERE) OBESITY DUE TO EXCESS CALORIES Status: Chronic - Plan Plan: medical unit general surgery consultation, recommendations appreciated infectious disease consultation, recommendations appreciated no surgical intervention recommended at this time lower extremity cellulitis without drainable abscess and chronic changes of the joint in stable condition broad-spectrum IV antibiotics De escalate to culture and sensitivity as able blood culture, no growth to date BMI of 70 in major component to ankle/ foot pain pain control continue HIV meds continue other home medications as able blood pressure control blood sugar control G.I. prophylaxis DVT prophylaxis
[2019-10-05] MEDS: HumaLOG 300 UNITS/3 ML VIAL SC PRN ×2 (12:39→17:11)
[2019-10-05 14:27] LABS: Vancomycin, Trough 16.2 ug/mL
[2019-10-05] MEDS: Lisinopril 20 MG TAB PO SCH (20:29)
[2019-10-05] MEDS: Elviteg/Cob/Emtri/Tenof Alafen [Genvoya Tablet] PO SCH (20:30)
[2019-10-06] MEDS: HYDROcodone/Acetaminophen 5/325 mg Tablet PO PRN ×3 (00:19→16:21)
[2019-10-06] MEDS: Cyclobenzaprine 10 MG TAB PO PRN ×2 (00:19→20:31)
[2019-10-06] MEDS: Ampicillin/Sulbactam 3 GM in Sodium Chloride 0.9% 100 ML IVPB SCH ×5 (00:21→23:33)
[2019-10-06 06:30] LABS: Anion Gap 11 mmol/L (10-20); BUN (Urea Nitrogen) 17 mg/dL (7.0-18.7); Calc. Creatinine Clearance 157 mL/min (70-130); Calcium 7.3 mg/dL (7.8-10.44); Carbon Dioxide 25 mmol/L (22-29); Chloride 104 mmol/L (98-107); Estimated GFR-MDRD 54; Glucose 159 mg/dL (70-105); Potassium 3.8 mmol/L (3.5-5.1); Sodium 136 mmol/L (136-145)
[2019-10-06] MEDS: Aspirin 81 mg Enteric Coated Tablet PO SCH (08:02)
[2019-10-06] MEDS: Enoxaparin Sodium 40 MG/0.4 ML SYRINGE SC SCH (08:02)
[2019-10-06] MEDS: Atorvastatin Calcium 40 MG TAB PO SCH (08:02)
[2019-10-06] MEDS: Amlodipine 5 MG TAB PO SCH (08:03)
[2019-10-06] MEDS: HumaLOG 300 UNITS/3 ML VIAL SC PRN ×3 (11:47→20:35)
[2019-10-06 15:09] LABS: %CD4 (Helper/Inducer) 42.4 % (30.8-58.5); Absolute CD4 636 /uL (359-1519); Lymphocytes/Gated Cell Count 1.5 x10E3/uL (0.7-3.1); Total Lymphocyte 35 % (Not Estab.); WBC Total Count 4.2 x10E3/uL (3.4-10.8)
--- NOTE | 2019-10-06 15:56 | PDOC.HOSPP ---
- Subjective Encounter Date: 10/06/19 Encounter Time: 07:15 Subjective: has pain in her extremities and foot. She does not know if she has neuropathy has not ambulated due to pain. - Objective Vital Signs & Weight: Vital Signs (12 hours) Temp Pulse Resp BP BP Pulse Ox 10/06/19 08:03 98 107/73 10/06/19 08:00 95 10/06/19 07:46 98.2 F 98 20 105/68 95 10/06/19 07:38 92 L Weight Admit Weight 408 lb 11.2 oz Weight 408 lb 11.2 oz I&O: 10/05/19 10/06/19 10/07/19 06:59 06:59 06:59 Intake Total 1350 Balance 1350 Result Diagrams: 10/04/19 05:41 10/06/19 05:40 Additional Labs: Accuchecks 10/06/19 10/06/19 10/05/19 11:41 05:23 20:02 POC Glucose 203 H 159 H 162 H 10/05/19 10/03/19 16:12 19:33 POC Glucose 208 H 97 Hospitalist ROS - Medication Medications: Active Medications Generic Name Dose Route Start Last Admin Trade Name Freq PRN Reason Stop Dose Admin Hydrocodone Bitart/Acetaminophen 2 tab 10/03/19 22:32 10/06/19 07:15 [place] 5/325 PO 2 tab Q4H PRN Administration Severe Pain (7-10) Amlodipine Besylate 5 mg 10/04/19 09:00 10/06/19 08:03 Norvasc PO 5 mg DAILY MELITA Administration Aspirin 81 mg 10/04/19 09:00 10/06/19 08:02 Ecotrin PO 81 mg DAILY MELITA Administration Atorvastatin Calcium 40 mg 10/04/19 09:00 10/06/19 08:02 Lipitor PO 40 mg DAILY MELITA Administration Cyclobenzaprine HCl 10 mg 10/03/19 21:58 10/06/19 00:19 Flexeril PO 10 mg HS PRN Administration Muscle Spasm Enoxaparin Sodium 40 mg 10/04/19 09:00 10/06/19 08:02 Lovenox SC 40 mg 0900 MELITA Administration Ampicillin Sodium/Sulbactam 100 mls @ 200 mls/hr 10/03/19 23:59 10/06/19 11: 44 Sodium 3 gm/ Sodium Chloride IVPB 100 mls Q6HR MELITA Administration Vancomycin HCl 2 gm/ Sodium 500 mls @ 250 mls/hr 10/04/19 15:00 10/06/19 15: 02 Chloride IVPB 10/09/19 23:59 500 mls 1500 MELITA Administration Insulin Human Lispro 0 units 10/03/19 22:26 10/06/19 11:47 Humalog SC 3 unit .MILD SLIDING SCALE PRN Administration Mild Correctional Scale Lisinopril 20 mg 10/04/19 21:00 10/05/19 20:29 Zestril PO 20 mg QPM MELITA Administration Pantoprazole Sodium 40 mg 10/04/19 09:00 10/06/19 08:02 Protonix PO 40 mg DAILY MELITA Administration Elviteg/Cob/Emtri/ 1 each 10/04/19 21:00 10/05/19 20:30 Tenof Alafen [ PO 1 each Genvoya Tablet] HS MELITA Administration Senna/Docusate Sodium 2 tab 10/03/19 22:32 10/06/19 08:01 Senokot S PO 2 tab BIDPRN PRN Administration Constipation - Exam General Appearance: awake alert Eye: PERRL, anicteric sclera ENT: no oropharyngeal lesions, moist mucosa Neck: supple, no JVD Heart: RRR, no murmur Respiratory: no wheezes, no rales, rhonchi Gastrointestinal: soft, non-tender, non-distended, normal bowel sounds Gastrointestinal - other findings: lower midline ulcer Extremities - other findings: right leg is warm and tender to touch, cannot discern erythema Neurological: cranial nerve grossly intact, no focal deficits Psychiatric: normal affect, A&O x 3 Hosp A/P (1) Cellulitis of right leg Code(s): L03.115 - CELLULITIS OF RIGHT LOWER LIMB Status: Acute (2) Skin wound from surgical incision Code(s): T14.8XXA - OTHER INJURY OF UNSPECIFIED BODY REGION, INITIAL ENCOUNTER Status: Acute (3) HIV (human immunodeficiency virus infection) Status: Chronic (4) Hepatitis C antibody positive in blood Code(s): R76.8 - OTHER SPECIFIED ABNORMAL IMMUNOLOGICAL FINDINGS IN SERUM Status: Chronic (5) DM2 (diabetes mellitus, type 2) Status: Chronic 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 CD4 count is good at 636, continue Genvoya PT to mobilize as tolerated, is at risk for dvt with morbid obesity and LE pain continue lisinopril, lipitor, asp, metformin and glyburide Has life threatening obesity with BMI of 70. PCP is , HIV doc is . wound care for lower midline abd ulcer. she ambulates with walker at home.
[2019-10-06] MEDS: Gabapentin 300 MG CAP PO SCH (20:27)
[2019-10-06] MEDS: Lisinopril 20 MG TAB PO SCH (20:27)
[2019-10-06] MEDS: Elviteg/Cob/Emtri/Tenof Alafen [Genvoya Tablet] PO SCH (20:31)
[2019-10-07] MEDS: Ampicillin/Sulbactam 3 GM in Sodium Chloride 0.9% 100 ML IVPB SCH ×3 (05:03→17:45)
[2019-10-07] MEDS: HumaLOG 300 UNITS/3 ML VIAL SC PRN (05:07)
[2019-10-07 05:53] LABS: Anion Gap 10 mmol/L (10-20); BUN (Urea Nitrogen) 19 mg/dL (7.0-18.7); Calc. Creatinine Clearance 165 mL/min (70-130); Calcium 7.4 mg/dL (7.8-10.44); Carbon Dioxide 26 mmol/L (22-29); Chloride 103 mmol/L (98-107); Estimated GFR-MDRD 57; Glucose 193 mg/dL (70-105); Sodium 135 mmol/L (136-145)
[2019-10-07] MEDS: Atorvastatin Calcium 40 MG TAB PO SCH (08:02)
[2019-10-07] MEDS: Aspirin 81 mg Enteric Coated Tablet PO SCH (08:02)
[2019-10-07] MEDS: metFORMIN 500 MG TAB PO SCH ×2 (08:03→17:04)
[2019-10-07] MEDS: glyBURIDE 5 MG TAB PO SCH (08:03)
[2019-10-07] MEDS: Amlodipine 5 MG TAB PO SCH (08:03)
[2019-10-07] MEDS: Gabapentin 300 MG CAP PO SCH ×2 (08:03→21:11)
[2019-10-07] MEDS: Enoxaparin Sodium 40 MG/0.4 ML SYRINGE SC SCH (08:04)
[2019-10-07] MEDS: HYDROcodone/Acetaminophen 5/325 mg Tablet PO PRN ×3 (08:08→21:11)
[2019-10-07 13:11] LABS: HIV-1 Quantitative, RNA PCR <20 copies/mL (.)
--- NOTE | 2019-10-07 15:12 | PDOC.HOSPP ---
- Subjective Encounter Date: 10/07/19 Encounter Time: 09:00 Subjective: has not amb yet due to pain no new complaints or fever - Objective Vital Signs & Weight: Vital Signs (12 hours) Temp Pulse Resp BP BP Pulse Ox 10/07/19 08:03 97 120/80 10/07/19 08:00 98.4 F 97 20 103/71 95 Weight Admit Weight 408 lb 11.2 oz Weight 408 lb 11.2 oz I&O: 10/06/19 10/07/19 10/08/19 06:59 06:59 06:59 Intake Total 1350 1600 600 Balance 1350 1600 600 Result Diagrams: 10/04/19 05:41 10/07/19 05:08 Additional Labs: Accuchecks 10/07/19 10/07/19 10/06/19 11:53 04:19 20:22 POC Glucose 179 H 228 H 242 H 10/06/19 16:15 POC Glucose 207 H Hospitalist ROS - Medication Medications: Active Medications Generic Name Dose Route Start Last Admin Trade Name Freq PRN Reason Stop Dose Admin Hydrocodone Bitart/Acetaminophen 1 tab 10/03/19 22:32 10/07/19 13:12 [place] 5/325 PO 1 tab Q4H PRN Administration Moderate Pain (4-6) Hydrocodone Bitart/Acetaminophen 2 tab 10/03/19 22:32 10/07/19 08:08 [place] 5/325 PO 2 tab Q4H PRN Administration Severe Pain (7-10) Amlodipine Besylate 5 mg 10/04/19 09:00 10/07/19 08:03 Norvasc PO 5 mg DAILY MELITA Administration Aspirin 81 mg 10/04/19 09:00 10/07/19 08:02 Ecotrin PO 81 mg DAILY MELITA Administration Atorvastatin Calcium 40 mg 10/04/19 09:00 10/07/19 08:02 Lipitor PO 40 mg DAILY MELITA Administration Bisacodyl 10 mg 10/03/19 22:32 10/06/19 16:21 Dulcolax PO 10 mg DAILYPRN PRN Administration Constipation Cyclobenzaprine HCl 10 mg 10/03/19 21:58 10/06/19 20:31 Flexeril PO 10 mg HS PRN Administration Muscle Spasm Enoxaparin Sodium 40 mg 10/04/19 09:00 10/07/19 08:04 Lovenox SC 40 mg 0900 MELITA Administration Gabapentin 300 mg 10/06/19 21:00 10/07/19 08:03 Neurontin PO 300 mg BID MELITA Administration Glyburide 5 mg 10/07/19 08:00 10/07/19 08:03 Diabeta PO 5 mg QAM-WM MELITA Administration Ampicillin Sodium/Sulbactam 100 mls @ 200 mls/hr 10/03/19 23:59 10/07/19 12: 03 Sodium 3 gm/ Sodium Chloride IVPB 100 mls Q6HR MELITA Administration Vancomycin HCl 2 gm/ Sodium 500 mls @ 250 mls/hr 10/04/19 15:00 10/07/19 14: 33 Chloride IVPB 10/09/19 23:59 500 mls 1500 MELITA Administration Insulin Human Lispro 0 units 10/03/19 22:26 10/07/19 05:07 Humalog SC 3 unit .MILD SLIDING SCALE PRN Administration Mild Correctional Scale Lisinopril 20 mg 10/04/19 21:00 10/06/19 20:27 Zestril PO 20 mg QPM MELITA Administration Metformin HCl 1,000 mg 10/07/19 08:00 10/07/19 08:03 Glucophage PO 1,000 mg BID-WM MELITA Administration Pantoprazole Sodium 40 mg 10/04/19 09:00 10/07/19 08:03 Protonix PO 40 mg DAILY MELITA Administration Elviteg/Cob/Emtri/ 1 each 10/04/19 21:00 10/06/19 20:31 Tenof Alafen [ PO 1 each Genvoya Tablet] HS MELITA Administration Senna/Docusate Sodium 2 tab 10/03/19 22:32 10/06/19 08:01 Senokot S PO 2 tab BIDPRN PRN Administration Constipation Sodium Chloride 10 ml 10/07/19 09:00 10/07/19 08:05 Flush - Normal Saline IVF 10 ml Q12HR MELITA Administration - Exam General Appearance: awake alert Eye: PERRL, anicteric sclera ENT: no oropharyngeal lesions, moist mucosa Neck: supple, no JVD Heart: RRR, no murmur Respiratory: no wheezes, no rales Gastrointestinal: soft, non-tender, non-distended, normal bowel sounds Extremities: no cyanosis, no edema Neurological: cranial nerve grossly intact, no focal deficits Hosp A/P (1) Cellulitis of right leg Code(s): L03.115 - CELLULITIS OF RIGHT LOWER LIMB Status: Acute (2) Skin wound from surgical incision Code(s): T14.8XXA - OTHER INJURY OF UNSPECIFIED BODY REGION, INITIAL ENCOUNTER Status: Acute (3) HIV (human immunodeficiency virus infection) Status: Chronic (4) Hepatitis C antibody positive in blood Code(s): R76.8 - OTHER SPECIFIED ABNORMAL IMMUNOLOGICAL FINDINGS IN SERUM Status: Chronic (5) DM2 (diabetes mellitus, type 2) Status: Chronic Qualifiers: Diabetes mellitus skilled nursing insulin use: without skilled nursing use (6) HTN (hypertension) Code(s): I10 - ESSENTIAL (PRIMARY) HYPERTENSION Status: Chronic Qualifiers: Hypertension type: essential hypertension Qualified Code(s): I10 - Essential (primary) hypertension (7) Morbid obesity Code(s): E66.01 - MORBID (SEVERE) OBESITY DUE TO EXCESS CALORIES Status: Chronic - Plan is on unasyn and vanc on gabapentin from 10/06/2019, likely has neuropathy. CD4 count is good at 636, continue Genvoya PT to mobilize as tolerated, is at risk for dvt with morbid obesity and LE pain continue lisinopril, lipitor, asp, metformin and glyburide Has life threatening obesity with BMI of 70. PCP is , HIV doc is . wound care for lower midline abd ulcer. she ambulates with walker at home. to see her in am and likely dc.
--- NOTE | 2019-10-07 16:24 | PQF ---
CLINICAL DOCUMENTATION IMPROVEMENT CLARIFICATION FORM: ICD-10 Updated PLEASE DO AN ADDENDUM TO THE PROGRESS NOTE WITH ANY DOCUMENTATION UPDATES OR ADDITIONS AND CARRY THROUGH TO DC SUMMARY. THANK YOU. DATE: 10/07/19 ATTN: DR. GO Please exercise your independent, professional judgment in responding to the clarification form. Clinical indicators are provided on the bottom of this form for your review Please check appropriate box(es): [ ] Sepsis due to: (Pna, UTI, gangrenous gall bladder, etc.) Due to: [ ] Device (please specify) [ ] Implant [ ] Graft [ ] Infusion [ ] SIRS due to non-infectious process (please specify etiology) [ ] with organ dysfunction [ ] without organ dysfunction [ ] Severe sepsis with acute organ dysfunction of: (Examples: respiratory failure, encephalopathy, acute kidney failure, other) [ ] Septic Shock [ x ] Localized infection without sepsis [ ] Other diagnosis [ ] Unable to determine In addition, please specify: Present on Admission (POA): [ x ] Yes [ ] No [ ] Unable to determine For continuity of documentation, please document condition throughout progress notes and discharge summary. Thank You. CLINICAL INDICATORS - SIGNS / SYMPTOMS / LABS / RESULTS AND LOCATION IN MR ER NOTE: "SEPSIS" PULSE 102 RR 22 WBC 10/04: 4.0 LACTIC ACID 10/03: 2.4 RISKS: HIV+ (ER) RIGHT FOOT CELLULITIS (ER) H/O DIABETES (H&P 10/03) OPEN ABDOMINAL WOUND (H&P 10/03) TREATMENT: IV VANCOMYCIN (ER-10/09) IV CEFEPIME (ER) IV FLUIDS (ER) IV AMPICILLAN (10/03-PRESENT) INFECTIOUS DISEASE CONSULT (10/06) URINE AND BLOOD CULTURES (10/03) (This form is maintained as a part of the permanent medical record) 2014 [employer] All Rights Reserved [email or web address] Office: [phone] [facility] CENTERFunmilayo
[2019-10-07] MEDS: Lisinopril 20 MG TAB PO SCH (21:11)
[2019-10-07] MEDS: Cyclobenzaprine 10 MG TAB PO PRN (21:12)
[2019-10-07] MEDS: Elviteg/Cob/Emtri/Tenof Alafen [Genvoya Tablet] PO SCH (21:16)
[2019-10-08] MEDS: Ampicillin/Sulbactam 3 GM in Sodium Chloride 0.9% 100 ML IVPB SCH ×3 (00:28→11:50)
[2019-10-08] MEDS: HumaLOG 300 UNITS/3 ML VIAL SC PRN ×2 (06:12→20:21)
[2019-10-08] MEDS: Aspirin 81 mg Enteric Coated Tablet PO SCH (08:52)
[2019-10-08] MEDS: metFORMIN 500 MG TAB PO SCH ×2 (08:52→16:50)
[2019-10-08] MEDS: Gabapentin 300 MG CAP PO SCH ×3 (08:52→20:19)
[2019-10-08] MEDS: Atorvastatin Calcium 40 MG TAB PO SCH (08:52)
[2019-10-08] MEDS: Enoxaparin Sodium 40 MG/0.4 ML SYRINGE SC SCH (08:53)
[2019-10-08] MEDS: glyBURIDE 5 MG TAB PO SCH (08:53)
[2019-10-08] MEDS: Amlodipine 5 MG TAB PO SCH (08:53)
--- NOTE | 2019-10-08 13:24 | PDOC.HOSPP ---
- Subjective Encounter Date: 10/08/19 Encounter Time: 12:00 Subjective: says her legs hurt and cant ambulate is waiting for to come see her - Objective Vital Signs & Weight: Vital Signs (12 hours) Temp Pulse Resp BP BP Pulse Ox Pulse Ox 10/08/19 09:25 100/68 86 L 10/08/19 08:53 103 H 10/08/19 08:00 95 10/08/19 07:55 98.5 F 103 H 20 106/73 95 Pulse Ox 10/08/19 09:25 96 10/08/19 08:53 10/08/19 08:00 10/08/19 07:55 Weight Admit Weight 408 lb 11.2 oz Weight 408 lb 11.2 oz I&O: 10/07/19 10/08/19 10/09/19 06:59 06:59 06:59 Intake Total 1600 960 240 Balance 1600 960 240 Result Diagrams: 10/04/19 05:41 10/07/19 05:08 Additional Labs: Accuchecks 10/08/19 10/08/19 10/07/19 11:31 04:37 19:36 POC Glucose 170 H 186 H 182 H 10/07/19 16:29 POC Glucose 172 H Hospitalist ROS - Medication Medications: Active Medications Generic Name Dose Route Start Last Admin Trade Name Freq PRN Reason Stop Dose Admin Hydrocodone Bitart/Acetaminophen 1 tab 10/03/19 22:32 10/07/19 21:11 [place] 5/325 PO 1 tab Q4H PRN Administration Moderate Pain (4-6) Hydrocodone Bitart/Acetaminophen 2 tab 10/03/19 22:32 10/07/19 08:08 [place] 5/325 PO 2 tab Q4H PRN Administration Severe Pain (7-10) Amlodipine Besylate 5 mg 10/04/19 09:00 10/08/19 08:53 Norvasc PO 5 mg DAILY MELITA Administration Aspirin 81 mg 10/04/19 09:00 10/08/19 08:52 Ecotrin PO 81 mg DAILY MELITA Administration Atorvastatin Calcium 40 mg 10/04/19 09:00 10/08/19 08:52 Lipitor PO 40 mg DAILY MELITA Administration Bisacodyl 10 mg 10/03/19 22:32 10/06/19 16:21 Dulcolax PO 10 mg DAILYPRN PRN Administration Constipation Cyclobenzaprine HCl 10 mg 10/03/19 21:58 10/07/19 21:12 Flexeril PO 10 mg HS PRN Administration Muscle Spasm Enoxaparin Sodium 40 mg 10/04/19 09:00 10/08/19 08:53 Lovenox SC 40 mg 0900 MELITA Administration Glyburide 5 mg 10/07/19 08:00 10/08/19 08:53 Diabeta PO 5 mg QAM-WM MELITA Administration Insulin Human Lispro 0 units 10/03/19 22:26 10/08/19 06:12 Humalog SC 2 unit .MILD SLIDING SCALE PRN Administration Mild Correctional Scale Lisinopril 20 mg 10/04/19 21:00 10/07/19 21:11 Zestril PO 20 mg QPM MELITA Administration Metformin HCl 1,000 mg 10/07/19 08:00 10/08/19 08:52 Glucophage PO 1,000 mg BID-WM MELITA Administration Pantoprazole Sodium 40 mg 10/04/19 09:00 10/08/19 08:52 Protonix PO 40 mg DAILY MELITA Administration Elviteg/Cob/Emtri/ 1 each 10/04/19 21:00 10/07/19 21:16 Tenof Alafen [ PO 1 each Genvoya Tablet] HS MELITA Administration Senna/Docusate Sodium 2 tab 10/03/19 22:32 10/06/19 08:01 Senokot S PO 2 tab BIDPRN PRN Administration Constipation Sodium Chloride 10 ml 10/07/19 09:00 10/08/19 08:54 Flush - Normal Saline IVF 10 ml Q12HR MELITA Administration - Exam General Appearance: NAD, awake alert Eye: PERRL, anicteric sclera ENT: no oropharyngeal lesions, moist mucosa Neck: supple, no JVD Heart: RRR, no murmur Respiratory: no wheezes, no rales, rhonchi Gastrointestinal: soft, non-tender, non-distended, normal bowel sounds Extremities: no cyanosis, no edema Neurological: cranial nerve grossly intact, no focal deficits Psychiatric: A&O x 3 Hosp A/P (1) Cellulitis of right leg Code(s): L03.115 - CELLULITIS OF RIGHT LOWER LIMB Status: Acute (2) Skin wound from surgical incision Code(s): T14.8XXA - OTHER INJURY OF UNSPECIFIED BODY REGION, INITIAL ENCOUNTER Status: Acute (3) HIV (human immunodeficiency virus infection) Status: Chronic (4) Hepatitis C antibody positive in blood Code(s): R76.8 - OTHER SPECIFIED ABNORMAL IMMUNOLOGICAL FINDINGS IN SERUM Status: Chronic (5) DM2 (diabetes mellitus, type 2) Status: Chronic Qualifiers: Diabetes mellitus fpc insulin use: without fpc use (6) HTN (hypertension) Code(s): I10 - ESSENTIAL (PRIMARY) HYPERTENSION Status: Chronic Qualifiers: Hypertension type: essential hypertension Qualified Code(s): I10 - Essential (primary) hypertension (7) Morbid obesity Code(s): E66.01 - MORBID (SEVERE) OBESITY DUE TO EXCESS CALORIES Status: Chronic - Plan is on unasyn and vanc on gabapentin from 10/06/2019, likely has neuropathy. CD4 count is good at 636, continue Genvoya PT to mobilize as tolerated, is at risk for dvt with morbid obesity and LE pain continue lisinopril, lipitor, asp, metformin and glyburide Has life threatening obesity with BMI of 70. PCP is , HIV doc is . wound care for lower midline abd ulcer. she ambulates with walker at home. to see her will need placement
--- NOTE | 2019-10-08 16:47 | CON ---
DATE OF CONSULTATION: 10/08/2019 REASON FOR CONSULTATION: Polyarthralgias in the feet area. HISTORY OF PRESENT ILLNESS: A 49-year-old, who is known to me from clinic, where I see her for management of longstanding HIV infection. She also has a history of obesity, type 2 diabetes, hypertension, and stage 3 CKD. She takes her antiretroviral therapy Genvoya with excellent adherence and in May last year, she was seen at the commutator repairer's office because of right knee arthralgia. The patient was given an injection of corticosteroids with resolution of inflammatory process until mid September when she developed again recrudescence of it, went to the emergency room, was given clindamycin and sent home and she got better a little bit. She also was given nonsteroidal anti-inflammatory agents at that time, so she did get better temporarily and now the pain is back and has manifested itself, not just in the right ankle, but also in the left side involving also the first MPJ. This symptom has prevented her from ambulation. She has she was brought in to the to the hospital and she was admitted on October 03 and the impression initially was cellulitis with superimposed on HIV and diabetes and obesity. She had a lower extremity CT scan, which showed nonspecific edema, arthrosis, and degenerative changes. Postop changes in the ankle and distal fibula, but no abscess or other bony abnormalities. She had an echocardiogram, which was not particularly remarkable and the chest x-ray with by bilateral congestion. Currently, she is awake and alert. She is tearful and upset about her foot problem and the mobility impairment associated with it. No headaches, visual symptoms, sore throat, odynophagia, or dysphagia. No cough or sputum production. No chest pain no abdominal pain. She has a fissure that developed in the one of the intertriginous area in her abdominal fold region in the midline. She was constipated until recently. She is voiding without difficulty. No other joint symptoms noted at this time. PAST MEDICAL HISTORY: HIV seropositive state since 2016 with excellent adherence to antiretroviral therapy, type 2 diabetes, obesity, CKD stage 3, and recurring episodes of polyarthralgias mostly in the feet area. One of those episodes responded to the injection of corticosteroid to the right ankle. ALLERGIES: TO METFORMIN. PAST SURGICAL HISTORY: , cholecystectomy, and bone spurs removal. FAMILY HISTORY: Type 2 diabetes. MEDICATIONS LIST: 1. Lisinopril. 2. Glyburide. 3. Aspirin. 4. Norvasc. 5. Genvoya. Currently, she is on: 1. Ampicillin sulbactam. 2. Vancomycin. PHYSICAL EXAMINATION: VITAL SIGNS: T-max 98.8, blood pressure 100/68, pulse ranging from 98 to 103, and O2 saturation 95. SKIN: Shows the area of hyperpigmentation in the dorsal aspect of the medial right ankle. No drainage. She has the intertriginous area of fissuring in the midline lower abdominal fold region. She has a peripheral IV access. No lymphadenopathy. HEENT: Sclerae are normal. Conjunctivae normal. Oral cavity normal except for missing teeth. NECK: Supple. No jugular vein distention or carotid bruits. LUNGS: Symmetric clear breath sounds. HEART: S1 and S2, regular rate. No S3 or S4. ABDOMEN: Soft, not distended or tender. No ascites. No bladder distention. Shoulder, elbows, wrists and hips and knees without inflammatory activity noted. Markedly tender in the ankle first metatarsophalangeal joints right and left side. Range of motion is preserved not a lot of swelling noted. Pulses are 1+ in dorsalis pedis. Moves extremities with not much limitation. NEUROLOGIC: She is awake and oriented. Follows commands. LABORATORY DATA: The sodium 139 creatinine is 1.38, which is close to her baseline. Calcium 8.9, transaminases normal, alkaline phosphatase 70, albumin 3.7, and globulin 5.5. Urinalysis 0 to 3 wbc's. CD4 of 636, RNA PCR less than 20. Limited imaging studies noted above. Blood culture, no growth 48 hours. Urine culture no growth 48 hours. White cell count 6.2, hemoglobin 14, normal differential. ASSESSMENT: 1. Obesity. 2. Longstanding HIV infection, well controlled with excellent adherence to antiretroviral therapy, adequate CD4 cell count and undetectable viral load. 3. Recurring episodes of polyarthralgias/arthritis previously was having responded well to intra-articular injection with corticosteroids by commutator repairer in May last year, now with recurrence x2 in September and this would be the one that led to this admission. DISCUSSION: Differential diagnosis includes polyarthritis related to crystal-induced arthropathy for example, gout versus pseudogout or an infectious process. In view of the recurring nature of this problem, the previous response to anti-inflammatories, particularly the corticosteroid injection intervention which was carried out in May last year, which led to protracted remission of the process makes me believe that noninfectious inflammatory process due to crystal induced arthropathy is the more likely scenario. We will check uric acid in the serum and start colchicine and see what the clinical response is. Discontinue antimicrobial therapy. Job ID: [id number]
[2019-10-08] MEDS: HYDROcodone/Acetaminophen 5/325 mg Tablet PO PRN (18:58)
[2019-10-08] MEDS: Cyclobenzaprine 10 MG TAB PO PRN (18:58)
[2019-10-08] MEDS: Lisinopril 20 MG TAB PO SCH (20:18)
[2019-10-08] MEDS: Colchicine 0.6 MG TAB PO SCH (20:18)
[2019-10-08] MEDS: Elviteg/Cob/Emtri/Tenof Alafen [Genvoya Tablet] PO SCH (20:19)
[2019-10-09] MEDS: HumaLOG 300 UNITS/3 ML VIAL SC PRN (05:26)
[2019-10-09] MEDS: HYDROcodone/Acetaminophen 5/325 mg Tablet PO PRN ×2 (05:29→15:33)
[2019-10-09] MEDS: glyBURIDE 5 MG TAB PO SCH (09:01)
[2019-10-09] MEDS: metFORMIN 500 MG TAB PO SCH ×2 (09:02→17:08)
[2019-10-09] MEDS: Amlodipine 5 MG TAB PO SCH (09:03)
[2019-10-09] MEDS: Atorvastatin Calcium 40 MG TAB PO SCH (09:04)
[2019-10-09] MEDS: Aspirin 81 mg Enteric Coated Tablet PO SCH (09:04)
[2019-10-09] MEDS: Gabapentin 300 MG CAP PO SCH ×3 (09:05→20:08)
[2019-10-09] MEDS: Enoxaparin Sodium 40 MG/0.4 ML SYRINGE SC SCH (09:06)
[2019-10-09] MEDS: Colchicine 0.6 MG TAB PO SCH ×2 (09:09→20:08)
--- NOTE | 2019-10-09 16:23 | PDOC.HOSPP ---
- Subjective Encounter Date: 10/09/19 Encounter Time: 11:00 Subjective: still has pain in her feet b/l but better says will work with PT today - Objective Vital Signs & Weight: Vital Signs (12 hours) Temp Pulse Resp BP BP Pulse Ox 10/09/19 14:00 98.1 F 97 20 118/78 97 10/09/19 09:03 92 119/81 10/09/19 08:00 97 10/09/19 07:45 98.1 F 94 16 125/85 97 Weight Admit Weight 408 lb 11.2 oz Weight 408 lb 11.2 oz I&O: 10/08/19 10/09/19 10/10/19 06:59 06:59 06:59 Intake Total 960 1460 Output Total 750 Balance 960 710 Result Diagrams: 10/04/19 05:41 10/07/19 05:08 Additional Labs: Accuchecks 10/09/19 10/09/19 10/08/19 11:58 04:27 19:42 POC Glucose 136 H 218 H 191 H 10/08/19 17:02 POC Glucose 168 H Hospitalist ROS - Medication Medications: Active Medications Generic Name Dose Route Start Last Admin Trade Name Freq PRN Reason Stop Dose Admin Hydrocodone Bitart/Acetaminophen 1 tab 10/03/19 22:32 10/09/19 15:33 [place] 5/325 PO 1 tab Q4H PRN Administration Moderate Pain (4-6) Hydrocodone Bitart/Acetaminophen 2 tab 10/03/19 22:32 10/07/19 08:08 [place] 5/325 PO 2 tab Q4H PRN Administration Severe Pain (7-10) Amlodipine Besylate 5 mg 10/04/19 09:00 10/09/19 09:03 Norvasc PO 5 mg DAILY MELITA Administration Aspirin 81 mg 10/04/19 09:00 10/09/19 09:04 Ecotrin PO 81 mg DAILY MELITA Administration Atorvastatin Calcium 40 mg 10/04/19 09:00 10/09/19 09:04 Lipitor PO 40 mg DAILY MELITA Administration Bisacodyl 10 mg 10/03/19 22:32 10/06/19 16:21 Dulcolax PO 10 mg DAILYPRN PRN Administration Constipation Colchicine 0.6 mg 10/08/19 21:00 10/09/19 09:09 Colchicine PO 0.6 mg BID MELITA Administration Cyclobenzaprine HCl 10 mg 10/03/19 21:58 10/08/19 18:58 Flexeril PO 10 mg HS PRN Administration Muscle Spasm Enoxaparin Sodium 40 mg 10/04/19 09:00 10/09/19 09:06 Lovenox SC 40 mg 0900 MELITA Administration Gabapentin 300 mg 10/08/19 15:00 10/09/19 14:43 Neurontin PO 300 mg TID MELITA Administration Glyburide 5 mg 10/07/19 08:00 10/09/19 09:01 Diabeta PO 5 mg QAM-WM MELITA Administration Insulin Human Lispro 0 units 10/03/19 22:26 10/09/19 05:26 Humalog SC 3 unit .MILD SLIDING SCALE PRN Administration Mild Correctional Scale Lisinopril 20 mg 10/04/19 21:00 10/08/19 20:18 Zestril PO 20 mg QPM MELITA Administration Metformin HCl 1,000 mg 10/07/19 08:00 10/09/19 09:02 Glucophage PO 1,000 mg BID-WM MELITA Administration Pantoprazole Sodium 40 mg 10/04/19 09:00 10/09/19 09:05 Protonix PO 40 mg DAILY MELITA Administration Elviteg/Cob/Emtri/ 1 each 10/04/19 21:00 10/08/19 20:19 Tenof Alafen [ PO 1 each Genvoya Tablet] HS MELITA Administration Senna/Docusate Sodium 2 tab 10/03/19 22:32 10/06/19 08:01 Senokot S PO 2 tab BIDPRN PRN Administration Constipation Sodium Chloride 10 ml 10/07/19 09:00 10/09/19 09:07 Flush - Normal Saline IVF 10 ml Q12HR MELITA Administration - Exam General Appearance: awake alert Eye: PERRL, anicteric sclera ENT: no oropharyngeal lesions, moist mucosa Neck: supple, no JVD Heart: RRR, no murmur Respiratory: no wheezes, no rales, rhonchi Gastrointestinal: soft, non-tender, non-distended, normal bowel sounds Extremities: no cyanosis, no edema Neurological: cranial nerve grossly intact, no focal deficits Hosp A/P (1) Cellulitis of right leg Code(s): L03.115 - CELLULITIS OF RIGHT LOWER LIMB Status: Acute (2) Skin wound from surgical incision Code(s): T14.8XXA - OTHER INJURY OF UNSPECIFIED BODY REGION, INITIAL ENCOUNTER Status: Acute (3) HIV (human immunodeficiency virus infection) Status: Chronic Qualifiers: HIV symptom status: asymptomatic Qualified Code(s): Z21 - Asymptomatic human immunodeficiency virus [HIV] infection status (4) Hepatitis C antibody positive in blood Code(s): R76.8 - OTHER SPECIFIED ABNORMAL IMMUNOLOGICAL FINDINGS IN SERUM Status: Chronic (5) DM2 (diabetes mellitus, type 2) Status: Chronic Qualifiers: Diabetes mellitus supervisor intermediates insulin use: without supervisor intermediates use (6) HTN (hypertension) Code(s): I10 - ESSENTIAL (PRIMARY) HYPERTENSION Status: Chronic Qualifiers: Hypertension type: essential hypertension Qualified Code(s): I10 - Essential (primary) hypertension (7) Morbid obesity Code(s): E66.01 - MORBID (SEVERE) OBESITY DUE TO EXCESS CALORIES Status: Chronic - Plan off antibiotics, is on colchicine and gabapentin on gabapentin from 10/06/2019, likely has neuropathy. CD4 count is good at 636, continue Genvoya PT to mobilize as tolerated, is at risk for dvt with morbid obesity and LE pain continue lisinopril, lipitor, asp, metformin and glyburide Has life threatening obesity with BMI of 70. PCP is , HIV doc is . wound care for lower midline abd ulcer. she ambulates with walker at home. will need placement
[2019-10-09] MEDS: Elviteg/Cob/Emtri/Tenof Alafen [Genvoya Tablet] PO SCH (20:08)
[2019-10-09] MEDS: Lisinopril 20 MG TAB PO SCH (20:09)
[2019-10-10] MEDS: Colchicine 0.6 MG TAB PO SCH (08:35)
[2019-10-10] MEDS: Gabapentin 300 MG CAP PO SCH ×3 (08:36→22:04)
[2019-10-10] MEDS: Aspirin 81 mg Enteric Coated Tablet PO SCH (08:36)
[2019-10-10] MEDS: Amlodipine 5 MG TAB PO SCH (08:37)
[2019-10-10] MEDS: Atorvastatin Calcium 40 MG TAB PO SCH (08:37)
[2019-10-10] MEDS: metFORMIN 500 MG TAB PO SCH ×2 (08:37→18:50)
[2019-10-10] MEDS: Enoxaparin Sodium 40 MG/0.4 ML SYRINGE SC SCH (08:38)
[2019-10-10] MEDS: glyBURIDE 5 MG TAB PO SCH (08:38)
[2019-10-10] MEDS: HYDROcodone/Acetaminophen 5/325 mg Tablet PO PRN ×3 (08:43→18:52)
[2019-10-10] MEDS ORDERED: predniSONE 20 MG TAB PO SCH (13:00)
--- NOTE | 2019-10-10 13:10 | PRG ---
DATE OF SERVICE: 10/10/2019 SUBJECTIVE: The patient is still having pain in the right and left feet, mostly at the first metatarsophalangeal joint, both sides. The ankles are not bothering her much. At rest, she does not hurt, but when she tries to step on it, it is still painful, having some loose stools, probably from the colchicine. No respiratory symptoms. No genitourinary symptoms. No headaches. OBJECTIVE: VITAL SIGNS: She has been afebrile. Other vital signs are normal. LUNGS: Clear. CARDIAC: S1 and S2, regular rate. ABDOMEN: Soft. Not distended or tender. EXTREMITIES: Still with tenderness in the right and left first metatarsophalangeal joints, but not as much as before. The range of motion of the ankles is intact. She may have a little bit of effusion in the right knee. The range of motion is preserved there without tenderness. LABORATORY DATA: We do not have any new laboratory results other than glucose of 123. The cultures are negative. ASSESSMENT AND DISCUSSION: Obesity; longstanding human immunodeficiency virus infection, well controlled with excellent adherence to anti-retroviral therapy and adequate CD4 cell count; and polyarthralgias, mostly in the feet, but also a little bit on the right knee. The differential diagnosis includes crystal induced arthropathy, which is the more likely scenario. An autoimmune process needs to be considered as well. We will go ahead and submit rheumatoid factor, KLAUDIA. I will decrease Colcrys to once a day, and we will give a low-dose prednisone. Job ID: [id number]
--- NOTE | 2019-10-10 13:38 | PDOC.HOSPP ---
- Subjective Encounter Date: 10/10/19 Encounter Time: 10:15 Subjective: still has pain in his foot b/l says she needs time for her gout pill to work and its only 3 days now. has not stood or gotten out of bed so far - Objective Vital Signs & Weight: Vital Signs (12 hours) Temp Pulse Resp BP Pulse Ox 10/10/19 07:43 98.1 F 95 14 115/78 96 10/10/19 05:11 98.6 F Weight Admit Weight 408 lb 11.2 oz Weight 408 lb 11.2 oz I&O: 10/09/19 10/10/19 10/11/19 06:59 06:59 06:59 Intake Total 1460 450 Output Total 750 Balance 710 450 Result Diagrams: 10/04/19 05:41 10/07/19 05:08 Additional Labs: Accuchecks 10/10/19 10/10/19 10/09/19 11:31 05:13 20:14 POC Glucose 123 H 136 H 158 H 10/09/19 16:35 POC Glucose 155 H Hospitalist ROS - Medication Medications: Active Medications Generic Name Dose Route Start Last Admin Trade Name Freq PRN Reason Stop Dose Admin Hydrocodone Bitart/Acetaminophen 1 tab 10/03/19 22:32 10/09/19 15:33 [place] 5/325 PO 1 tab Q4H PRN Administration Moderate Pain (4-6) Hydrocodone Bitart/Acetaminophen 2 tab 10/03/19 22:32 10/10/19 12:36 [place] 5/325 PO 2 tab Q4H PRN Administration Severe Pain (7-10) Amlodipine Besylate 5 mg 10/04/19 09:00 10/10/19 08:37 Norvasc PO 5 mg DAILY MELITA Administration Aspirin 81 mg 10/04/19 09:00 10/10/19 08:36 Ecotrin PO 81 mg DAILY MELITA Administration Atorvastatin Calcium 40 mg 10/04/19 09:00 10/10/19 08:37 Lipitor PO 40 mg DAILY MELITA Administration Bisacodyl 10 mg 10/03/19 22:32 10/06/19 16:21 Dulcolax PO 10 mg DAILYPRN PRN Administration Constipation Cyclobenzaprine HCl 10 mg 10/03/19 21:58 10/08/19 18:58 Flexeril PO 10 mg HS PRN Administration Muscle Spasm Enoxaparin Sodium 40 mg 10/04/19 09:00 10/10/19 08:38 Lovenox SC 40 mg 0900 MELITA Administration Gabapentin 300 mg 10/08/19 15:00 10/10/19 08:36 Neurontin PO 300 mg TID MELITA Administration Glyburide 5 mg 10/07/19 08:00 10/10/19 08:38 Diabeta PO 5 mg QAM-WM MELITA Administration Insulin Human Lispro 0 units 10/03/19 22:26 10/09/19 05:26 Humalog SC 3 unit .MILD SLIDING SCALE PRN Administration Mild Correctional Scale Lisinopril 20 mg 10/04/19 21:00 10/09/19 20:09 Zestril PO 20 mg QPM MELITA Administration Metformin HCl 1,000 mg 10/07/19 08:00 10/10/19 08:37 Glucophage PO 1,000 mg BID-WM MELITA Administration Pantoprazole Sodium 40 mg 10/04/19 09:00 10/10/19 08:38 Protonix PO 40 mg DAILY MELITA Administration Elviteg/Cob/Emtri/ 1 each 10/04/19 21:00 10/09/19 20:08 Tenof Alafen [ PO 1 each Genvoya Tablet] HS MELITA Administration Senna/Docusate Sodium 2 tab 10/03/19 22:32 10/06/19 08:01 Senokot S PO 2 tab BIDPRN PRN Administration Constipation Sodium Chloride 10 ml 10/07/19 09:00 10/09/19 20:09 Flush - Normal Saline IVF 10 ml Q12HR MELITA Administration - Exam General Appearance: awake alert Eye: PERRL, anicteric sclera ENT: no oropharyngeal lesions, moist mucosa Neck: supple, no JVD Heart: RRR, no murmur Respiratory: no wheezes, no rales Gastrointestinal: soft, non-tender, non-distended, normal bowel sounds Extremities: no cyanosis, no edema Neurological: cranial nerve grossly intact, no new deficit Psychiatric: A&O x 3 Hosp A/P (1) Cellulitis of right leg Code(s): L03.115 - CELLULITIS OF RIGHT LOWER LIMB Status: Acute (2) Skin wound from surgical incision Code(s): T14.8XXA - OTHER INJURY OF UNSPECIFIED BODY REGION, INITIAL ENCOUNTER Status: Acute (3) HIV (human immunodeficiency virus infection) Status: Chronic Qualifiers: HIV symptom status: asymptomatic Qualified Code(s): Z21 - Asymptomatic human immunodeficiency virus [HIV] infection status (4) Hepatitis C antibody positive in blood Code(s): R76.8 - OTHER SPECIFIED ABNORMAL IMMUNOLOGICAL FINDINGS IN SERUM Status: Chronic (5) DM2 (diabetes mellitus, type 2) Status: Chronic Qualifiers: Diabetes mellitus watermelon harvesting supervisor insulin use: without group home use (6) HTN (hypertension) Code(s): I10 - ESSENTIAL (PRIMARY) HYPERTENSION Status: Chronic Qualifiers: Hypertension type: essential hypertension Qualified Code(s): I10 - Essential (primary) hypertension (7) Morbid obesity Code(s): E66.01 - MORBID (SEVERE) OBESITY DUE TO EXCESS CALORIES Status: Chronic - Plan off antibiotics, is on colchicine, prednisone x1 dose and gabapentin on gabapentin from 10/06/2019, likely has neuropathy. CD4 count is good at 636, continue Genvoya PT to mobilize as tolerated, is at risk for dvt with morbid obesity and LE pain continue lisinopril, lipitor, asp, metformin and glyburide Has life threatening obesity with BMI of 70. PCP is , HIV doc is . wound care for lower midline abd ulcer. she ambulates with walker at home but has not mobilized at all here so far due to pain in foot. will need placement
[2019-10-10] MEDS: Lisinopril 20 MG TAB PO SCH (22:04)
[2019-10-10] MEDS: HumaLOG 300 UNITS/3 ML VIAL SC PRN (22:05)
[2019-10-10] MEDS: Elviteg/Cob/Emtri/Tenof Alafen [Genvoya Tablet] PO SCH (22:05)
[2019-10-11] MEDS: HumaLOG 300 UNITS/3 ML VIAL SC PRN (05:49)
[2019-10-11] MEDS: glyBURIDE 5 MG TAB PO SCH (08:35)
[2019-10-11] MEDS: Amlodipine 5 MG TAB PO SCH (08:35)
[2019-10-11] MEDS: Colchicine 0.6 MG TAB PO SCH (08:37)
[2019-10-11] MEDS: Atorvastatin Calcium 40 MG TAB PO SCH (08:37)
[2019-10-11] MEDS: Gabapentin 300 MG CAP PO SCH ×3 (08:37→21:44)
[2019-10-11] MEDS: Aspirin 81 mg Enteric Coated Tablet PO SCH (08:37)
[2019-10-11] MEDS: Enoxaparin Sodium 40 MG/0.4 ML SYRINGE SC SCH (08:38)
[2019-10-11] MEDS: metFORMIN 500 MG TAB PO SCH ×2 (08:39→17:23)
[2019-10-11 08:52] LABS: Hemoglobin 10.4 g/dL (12.0-16.0); Mean Corpuscular HGB CONC 29.9 g/dL (32.0-36.0); Mean Corpuscular Hemoglobin 30.1 pg (27.0-31.0); Mean Platelet Volume 7.9 fL (7.4-10.4); Platelet Count 307 thou/uL (130-400); RBC Distribution Width 13.7 % (11.5-14.5); Red Blood Cell (RBC) Count 3.45 mill/uL (4.20-5.40); White Blood Cell (WBC) Count 4.3 thou/uL (4.8-10.8)
[2019-10-11 09:07] LABS: ALT (SGPT) 12 U/L (8-55); AST (SGOT) 21 U/L (5-34); Alkaline Phosphatase 54 U/L (40-110); Anion Gap 15 mmol/L (10-20); BUN (Urea Nitrogen) 15 mg/dL (7.0-18.7); Bilirubin, Total 0.2 mg/dL (0.2-1.2); Calc. Creatinine Clearance 221 mL/min (70-130); Calcium 9.6 mg/dL (7.8-10.44); Carbon Dioxide 19 mmol/L (22-29); Chloride 108 mmol/L (98-107); Estimated GFR-MDRD 81; Globulin 5.4 g/dL (2.4-3.5); Glucose 104 mg/dL (70-105); Potassium 5.4 mmol/L (3.5-5.1); Protein, Total 8.4 g/dL (6.0-8.3); Sodium 137 mmol/L (136-145)
--- NOTE | 2019-10-11 09:58 | PDOC.HOSPP ---
- Subjective Encounter Date: 10/11/19 Encounter Time: 08:15 Subjective: has no pain in her feet this am and feels good says she will try to walk with PT today - Objective Vital Signs & Weight: Vital Signs (12 hours) Temp Pulse Resp BP BP Pulse Ox 10/11/19 08:35 85 117/75 10/11/19 07:30 98.0 F 85 20 117/76 98 10/10/19 22:04 137/79 Weight Admit Weight 408 lb 11.2 oz Weight 408 lb 11.2 oz I&O: 10/10/19 10/11/19 10/12/19 06:59 06:59 06:59 Intake Total 450 Balance 450 Result Diagrams: 10/11/19 08:31 10/11/19 08:31 Additional Labs: Accuchecks 10/11/19 10/10/19 10/10/19 04:48 19:36 16:56 POC Glucose 150 H 227 H 143 H 10/10/19 11:31 POC Glucose 123 H Hospitalist ROS - Medication Medications: Active Medications Generic Name Dose Route Start Last Admin Trade Name Freq PRN Reason Stop Dose Admin Hydrocodone Bitart/Acetaminophen 1 tab 10/03/19 22:32 10/09/19 15:33 [place] 5/325 PO 1 tab Q4H PRN Administration Moderate Pain (4-6) Hydrocodone Bitart/Acetaminophen 2 tab 10/03/19 22:32 10/10/19 18:52 [place] 5/325 PO 2 tab Q4H PRN Administration Severe Pain (7-10) Amlodipine Besylate 5 mg 10/04/19 09:00 10/11/19 08:35 Norvasc PO 5 mg DAILY MELITA Administration Aspirin 81 mg 10/04/19 09:00 10/11/19 08:37 Ecotrin PO 81 mg DAILY MELITA Administration Atorvastatin Calcium 40 mg 10/04/19 09:00 10/11/19 08:37 Lipitor PO 40 mg DAILY MELITA Administration Bisacodyl 10 mg 10/03/19 22:32 10/06/19 16:21 Dulcolax PO 10 mg DAILYPRN PRN Administration Constipation Colchicine 0.6 mg 10/11/19 09:00 10/11/19 08:37 Colchicine PO 0.6 mg DAILY MELITA Administration Cyclobenzaprine HCl 10 mg 10/03/19 21:58 10/08/19 18:58 Flexeril PO 10 mg HS PRN Administration Muscle Spasm Enoxaparin Sodium 40 mg 10/04/19 09:00 10/11/19 08:38 Lovenox SC 40 mg 0900 MELITA Administration Gabapentin 300 mg 10/08/19 15:00 10/11/19 08:37 Neurontin PO 300 mg TID MELITA Administration Glyburide 5 mg 10/07/19 08:00 10/11/19 08:35 Diabeta PO 5 mg QAM-WM MELITA Administration Insulin Human Lispro 0 units 10/03/19 22:26 10/11/19 05:49 Humalog SC 2 unit .MILD SLIDING SCALE PRN Administration Mild Correctional Scale Lisinopril 20 mg 10/04/19 21:00 10/10/19 22:04 Zestril PO 20 mg QPM MELITA Administration Metformin HCl 1,000 mg 10/07/19 08:00 10/11/19 08:39 Glucophage PO 1,000 mg BID-WM MELITA Administration Pantoprazole Sodium 40 mg 10/04/19 09:00 10/11/19 08:38 Protonix PO 40 mg DAILY MELITA Administration Elviteg/Cob/Emtri/ 1 each 10/04/19 21:00 10/10/19 22:05 Tenof Alafen [ PO 1 each Genvoya Tablet] HS MELITA Administration Senna/Docusate Sodium 2 tab 10/03/19 22:32 10/06/19 08:01 Senokot S PO 2 tab BIDPRN PRN Administration Constipation Sodium Chloride 10 ml 10/07/19 09:00 10/11/19 08:38 Flush - Normal Saline IVF 10 ml Q12HR MELITA Administration - Exam General Appearance: awake alert Eye: PERRL, anicteric sclera ENT: no oropharyngeal lesions, moist mucosa Neck: supple, no JVD Heart: RRR, no murmur Respiratory: no wheezes, no rales, rhonchi Gastrointestinal: soft, non-tender, non-distended, normal bowel sounds Extremities: no cyanosis, no edema Neurological: cranial nerve grossly intact, no focal deficits Hosp A/P (1) Cellulitis of right leg Code(s): L03.115 - CELLULITIS OF RIGHT LOWER LIMB Status: Acute (2) Skin wound from surgical incision Code(s): T14.8XXA - OTHER INJURY OF UNSPECIFIED BODY REGION, INITIAL ENCOUNTER Status: Acute (3) HIV (human immunodeficiency virus infection) Status: Chronic Qualifiers: HIV symptom status: asymptomatic Qualified Code(s): Z21 - Asymptomatic human immunodeficiency virus [HIV] infection status (4) Hepatitis C antibody positive in blood Code(s): R76.8 - OTHER SPECIFIED ABNORMAL IMMUNOLOGICAL FINDINGS IN SERUM Status: Chronic (5) DM2 (diabetes mellitus, type 2) Status: Chronic Qualifiers: Diabetes mellitus intermodal owner operator truck driver insulin use: without intermodal owner operator truck driver use (6) HTN (hypertension) Code(s): I10 - ESSENTIAL (PRIMARY) HYPERTENSION Status: Chronic Qualifiers: Hypertension type: essential hypertension Qualified Code(s): I10 - Essential (primary) hypertension (7) Morbid obesity Code(s): E66.01 - MORBID (SEVERE) OBESITY DUE TO EXCESS CALORIES Status: Chronic - Plan off antibiotics, is on colchicine, prednisone x1 dose and gabapentin diarrhea has gotten better now. on gabapentin from 10/06/2019, likely has neuropathy. CD4 count is good at 636, continue Genvoya PT to mobilize as tolerated, is at risk for dvt with morbid obesity and LE pain continue lisinopril, lipitor, asp, metformin and glyburide Has life threatening obesity with BMI of 70. PCP is , HIV doc is . wound care for lower midline abd ulcer. she ambulates with walker at home but has stood up yesterday, hopefully she will walk today. If patient ambulates well then she can go home in am if not will need placement
[2019-10-11] MEDS ORDERED: Sodium Chloride 0.9% 1,000 ML IV SCH (10:00)
[2019-10-11 11:13] LABS: #Lymphocytes 1.5 thou/uL (1.20-3.40); #Monocytes 0.4 thou/uL (0.11-0.59); #Neutrophils 2.4 thou/uL (1.40-6.50); %Basophils 0.6 % (0.0-1.0); %Lymphocytes 34.3 % (21.0-51.0); %Monocytes 8.6 % (0.0-10.0); %Neutrophils 55.4 % (42.0-75.0); Large Platelets SLIGHT; MDiff Complete? YES; Platelet Morphology Comment Appears Adequate; Polychromasia SLIGHT = 2-3 cells (100X) (0-2/hpf)
[2019-10-11] MEDS: HYDROcodone/Acetaminophen 5/325 mg Tablet PO PRN ×3 (11:20→23:00)
--- NOTE | 2019-10-11 15:18 | PRG ---
DATE OF SERVICE: 10/11/2019 SUBJECTIVE: Feeling better, able to walk with less pain. No respiratory symptoms or abdominal pain. No diarrhea anymore. OBJECTIVE: VITAL SIGNS: She is afebrile. Other vital signs are normal. GENERAL: Awake, alert, and oriented. LUNGS: Clear. CARDIOVASCULAR: S1 and S2, regular rate. ABDOMEN/EXTREMITIES: Soft, not distended with the right and left feet with less tenderness, better range of motion, less edema in the ankles and the first MTPs. LABORATORY DATA: White cell count 4.3, hemoglobin 10.4. The uric acid was elevated at 11.6. 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 We will discontinue the prednisone. Continue colchicine 0.6 daily. She will need to be on allopurinol eventually once the inflammatory process improves. Discharge planning probably tomorrow. Job ID: [id number]
[2019-10-11 16:17] LABS: Anion Gap 16 mmol/L (10-20); BUN (Urea Nitrogen) 14 mg/dL (7.0-18.7); Calc. Creatinine Clearance 216 mL/min (70-130); Calcium 9.4 mg/dL (7.8-10.44); Carbon Dioxide 21 mmol/L (22-29); Chloride 106 mmol/L (98-107); Estimated GFR-MDRD 79; Glucose 75 mg/dL (70-105); Potassium 4.6 mmol/L (3.5-5.1); Sodium 138 mmol/L (136-145)
[2019-10-11] MEDS: Lisinopril 20 MG TAB PO SCH (21:44)
[2019-10-11] MEDS: Elviteg/Cob/Emtri/Tenof Alafen [Genvoya Tablet] PO SCH (22:07)
[2019-10-12 06:52] LABS: Anion Gap 11 mmol/L (10-20); BUN (Urea Nitrogen) 13 mg/dL (7.0-18.7); Calc. Creatinine Clearance 229 mL/min (70-130); Carbon Dioxide 24 mmol/L (22-29); Chloride 105 mmol/L (98-107); Estimated GFR-MDRD 84; Glucose 105 mg/dL (70-105); Potassium 4.2 mmol/L (3.5-5.1); Sodium 136 mmol/L (136-145)
[2019-10-12] MEDS: glyBURIDE 5 MG TAB PO SCH (08:36)
[2019-10-12] MEDS: Amlodipine 5 MG TAB PO SCH (08:39)
[2019-10-12] MEDS: Atorvastatin Calcium 40 MG TAB PO SCH (08:39)
[2019-10-12] MEDS: Aspirin 81 mg Enteric Coated Tablet PO SCH (08:39)
[2019-10-12] MEDS: Colchicine 0.6 MG TAB PO SCH (08:41)
[2019-10-12] MEDS: Enoxaparin Sodium 40 MG/0.4 ML SYRINGE SC SCH (08:41)
[2019-10-12] MEDS: metFORMIN 500 MG TAB PO SCH ×2 (08:41→16:51)
[2019-10-12] MEDS: Gabapentin 300 MG CAP PO SCH ×3 (08:41→20:32)
[2019-10-12] MEDS: HYDROcodone/Acetaminophen 5/325 mg Tablet PO PRN (11:14)
--- NOTE | 2019-10-12 11:45 | PDOC.HOSPP ---
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 - Objective Vital Signs & Weight: Vital Signs (12 hours) Temp Pulse Resp BP BP Pulse Ox 10/12/19 08:39 79 116/76 10/12/19 08:00 97.7 F 10/12/19 05:18 97.7 F 79 16 116/76 96 10/11/19 23:51 98.2 F 86 16 136/88 98 Weight Admit Weight 408 lb 11.2 oz Weight 408 lb 11.2 oz I&O: 10/11/19 10/12/19 10/13/19 06:59 06:59 06:59 Intake Total 2049 Balance 2049 Result Diagrams: 10/11/19 08:31 10/12/19 06:23 Additional Labs: Accuchecks 10/12/19 10/11/19 10/11/19 04:55 19:34 16:10 POC Glucose 132 H 129 H 98 10/11/19 11:24 POC Glucose 78 Hospitalist ROS - Medication Medications: Active Medications Generic Name Dose Route Start Last Admin Trade Name Freq PRN Reason Stop Dose Admin Hydrocodone Bitart/Acetaminophen 1 tab 10/03/19 22:32 10/11/19 11:20 Cl[place]ier 5/325 PO 1 tab Q4H PRN Administration Moderate Pain (4-6) Hydrocodone Bitart/Acetaminophen 2 tab 10/03/19 22:32 10/12/19 11:14 Clutier 5/325 PO 2 tab Q4H PRN Administration Severe Pain (7-10) Amlodipine Besylate 5 mg 10/04/19 09:00 10/12/19 08:39 Norvasc PO 5 mg DAILY MELITA Administration Aspirin 81 mg 10/04/19 09:00 10/12/19 08:39 Ecotrin PO 81 mg DAILY MELITA Administration Atorvastatin Calcium 40 mg 10/04/19 09:00 10/12/19 08:39 Lipitor PO 40 mg DAILY MELITA Administration Bisacodyl 10 mg 10/03/19 22:32 10/06/19 16:21 Dulcolax PO 10 mg DAILYPRN PRN Administration Constipation Colchicine 0.6 mg 10/11/19 09:00 10/12/19 08:41 Colchicine PO 0.6 mg DAILY MELITA Administration Cyclobenzaprine HCl 10 mg 10/03/19 21:58 10/08/19 18:58 Flexeril PO 10 mg HS PRN Administration Muscle Spasm Enoxaparin Sodium 40 mg 10/04/19 09:00 10/12/19 08:41 Lovenox SC 40 mg 0900 MELITA Administration Gabapentin 300 mg 10/08/19 15:00 10/12/19 08:41 Neurontin PO 300 mg TID MELITA Administration Glyburide 5 mg 10/07/19 08:00 10/12/19 08:36 Diabeta PO 5 mg QAM-WM MELITA Administration Insulin Human Lispro 0 units 10/03/19 22:26 10/11/19 05:49 Humalog SC 2 unit .MILD SLIDING SCALE PRN Administration Mild Correctional Scale Lisinopril 20 mg 10/04/19 21:00 10/11/19 21:44 Zestril PO 20 mg QPM MELITA Administration Metformin HCl 1,000 mg 10/07/19 08:00 10/12/19 08:41 Glucophage PO 1,000 mg BID-WM MELITA Administration Pantoprazole Sodium 40 mg 10/04/19 09:00 10/12/19 08:41 Protonix PO 40 mg DAILY MELITA Administration Elviteg/Cob/Emtri/ 1 each 10/04/19 21:00 10/11/19 22:07 Tenof Alafen [ PO 1 each Genvoya Tablet] HS MELITA Administration Senna/Docusate Sodium 2 tab 10/03/19 22:32 10/06/19 08:01 Senokot S PO 2 tab BIDPRN PRN Administration Constipation Sodium Chloride 10 ml 10/07/19 09:00 10/12/19 08:42 Flush - Normal Saline IVF 10 ml Q12HR MELITA Administration - Exam General Appearance: awake alert Eye: PERRL, anicteric sclera ENT: no oropharyngeal lesions, moist mucosa Neck: supple, no JVD Heart: RRR, no murmur Respiratory: no wheezes, no rales Gastrointestinal: soft, non-tender, non-distended, normal bowel sounds Extremities: no cyanosis, no edema Neurological: cranial nerve grossly intact, no focal deficits Psychiatric: normal affect, A&O x 3 Hosp A/P (1) Cellulitis of right leg Code(s): L03.115 - CELLULITIS OF RIGHT LOWER LIMB Status: Acute (2) Skin wound from surgical incision Code(s): T14.8XXA - OTHER INJURY OF UNSPECIFIED BODY REGION, INITIAL ENCOUNTER Status: Acute (3) HIV (human immunodeficiency virus infection) Status: Chronic Qualifiers: HIV symptom status: asymptomatic Qualified Code(s): Z21 - Asymptomatic human immunodeficiency virus [HIV] infection status (4) Hepatitis C antibody positive in blood Code(s): R76.8 - OTHER SPECIFIED ABNORMAL IMMUNOLOGICAL FINDINGS IN SERUM Status: Chronic (5) DM2 (diabetes mellitus, type 2) Status: Chronic Qualifiers: Diabetes mellitus rodent exterminator insulin use: without rodent exterminator use (6) HTN (hypertension) Code(s): I10 - ESSENTIAL (PRIMARY) HYPERTENSION Status: Chronic Qualifiers: Hypertension type: essential hypertension Qualified Code(s): I10 - Essential (primary) hypertension (7) Morbid obesity Code(s): E66.01 - MORBID (SEVERE) OBESITY DUE TO EXCESS CALORIES Status: Chronic - Plan off antibiotics, is on colchicine, got prednisone x1 dose and gabapentin tid. diarrhea resolved sec to colchicine, now once daily from 10/10/2019. on gabapentin from 10/06/2019, likely has neuropathy. CD4 count is good at 636, continue Genvoya PT to mobilize as tolerated, is at risk for dvt with morbid obesity and LE pain continue lisinopril, lipitor, asp, metformin and glyburide Has life threatening obesity with BMI of 70. PCP is , HIV doc is . wound care for lower midline abd ulcer. she ambulates with walker at home but has ambulated to bedside comode and back to bed, hopefully she will walk today. If patient ambulates well then she can go home in am if not will need placement
[2019-10-12] MEDS ORDERED: BIOFREEZE GEL TOP PRN (15:51)
[2019-10-12] MEDS: Lisinopril 20 MG TAB PO SCH (20:31)
[2019-10-12] MEDS: Cyclobenzaprine 10 MG TAB PO PRN (20:31)
[2019-10-12] MEDS: Elviteg/Cob/Emtri/Tenof Alafen [Genvoya Tablet] PO SCH (20:32)
[2019-10-13] MEDS: Amlodipine 5 MG TAB PO SCH (08:50)
[2019-10-13] MEDS: metFORMIN 500 MG TAB PO SCH ×2 (08:50→17:03)
[2019-10-13] MEDS: glyBURIDE 5 MG TAB PO SCH (08:50)
[2019-10-13] MEDS: Aspirin 81 mg Enteric Coated Tablet PO SCH (08:51)
[2019-10-13] MEDS: Enoxaparin Sodium 40 MG/0.4 ML SYRINGE SC SCH (08:51)
[2019-10-13] MEDS: Colchicine 0.6 MG TAB PO SCH (08:51)
[2019-10-13] MEDS: Atorvastatin Calcium 40 MG TAB PO SCH (08:51)
[2019-10-13] MEDS: Gabapentin 300 MG CAP PO SCH ×3 (08:52→20:15)
[2019-10-13] MEDS: HYDROcodone/Acetaminophen 5/325 mg Tablet PO PRN ×3 (09:57→20:16)
[2019-10-13] MEDS ORDERED: predniSONE 20 MG TAB PO SCH (17:45)
--- NOTE | 2019-10-13 17:52 | PRG ---
DATE OF SERVICE: 10/13/2019 SUBJECTIVE: Today, she was having a little bit more pain in the left foot. The right foot is doing very well. No respiratory symptoms or abdominal pain. OBJECTIVE: VITAL SIGNS: Have been normal. LUNGS: Clear. CARDIAC: S1 and S2, regular rate. ABDOMEN: Soft and not distended. EXTREMITIES: Left foot with a little bit more tenderness in the first MPJ compared to the previous findings. The right foot inflammatory process has resolved. LABORATORY DATA: Creatinine has improved to 0.87. DISCUSSION: At this point, we will start allopurinol and give her another dose of prednisone and continue colchicine for protracted period of time. Continue anti-retroviral therapy. Job ID: [id number]
[2019-10-13] MEDS: Cyclobenzaprine 10 MG TAB PO PRN (20:15)
[2019-10-13] MEDS: Elviteg/Cob/Emtri/Tenof Alafen [Genvoya Tablet] PO SCH (20:17)
[2019-10-13] MEDS: Lisinopril 20 MG TAB PO SCH (20:17)
--- NOTE | 2019-10-13 22:43 | PDOC.HOSPP ---
- Subjective Encounter Date: 10/13/19 Encounter Time: 16:00 Subjective: Patient seen and examined for cellulitis/gout. Left foot pain. Difficulty walking due to pain. No fever or chills. No new complaints. No overnight events - Objective Vital Signs & Weight: Vital Signs (12 hours) Temp Pulse Resp BP BP BP Pulse Ox 10/13/19 20:17 151/79 H 10/13/19 20:00 98.2 F 93 18 151/79 H 93 L 10/13/19 12:22 98.1 F 91 15 138/71 95 Weight Admit Weight 408 lb 11.2 oz Weight 408 lb 11.2 oz I&O: 10/12/19 10/13/19 10/14/19 06:59 06:59 06:59 Intake Total 2049 1829 Balance 2049 1829 Result Diagrams: 10/11/19 08:31 10/12/19 06:23 Additional Labs: Accuchecks 10/13/19 10/13/19 10/13/19 19:56 16:35 11:38 POC Glucose 107 77 105 10/13/19 04:54 POC Glucose 127 H Radiology Reviewed by me: Yes (CT RLE - no abscess) Hospitalist ROS - Review of Systems Respiratory: denies: cough, dry, shortness of breath, hemoptysis, SOB with excertion, pleuritic pain, sputum, wheezing, other Cardiovascular: denies: chest pain, palpitations, orthopnea, paroxysmal noc. dyspnea, edema, light headedness, other Gastrointestinal: denies: nausea, vomiting, abdominal pain, diarrhea, constipation, melena, hematochezia, other - Medication Medications: Active Medications Generic Name Dose Route Start Last Admin Trade Name Freq PRN Reason Stop Dose Admin Amlodipine Besylate 5 mg 10/04/19 09:00 10/13/19 08:50 Norvasc PO 5 mg DAILY MELITA Administration Aspirin 81 mg 10/04/19 09:00 10/13/19 08:51 Ecotrin PO 81 mg DAILY MELITA Administration Atorvastatin Calcium 40 mg 10/04/19 09:00 10/13/19 08:51 Lipitor PO 40 mg DAILY MELITA Administration Bisacodyl 10 mg 10/03/19 22:32 10/06/19 16:21 Dulcolax PO 10 mg DAILYPRN PRN Administration Constipation Colchicine 0.6 mg 10/11/19 09:00 10/13/19 08:51 Colchicine PO 0.6 mg DAILY MELITA Administration Cyclobenzaprine HCl 10 mg 10/03/19 21:58 10/13/19 20:15 Flexeril PO 10 mg HS PRN Administration Muscle Spasm Enoxaparin Sodium 40 mg 10/04/19 09:00 10/13/19 08:51 Lovenox SC 40 mg 0900 MELITA Administration Gabapentin 300 mg 10/08/19 15:00 10/13/19 20:15 Neurontin PO 300 mg TID MELITA Administration Glyburide 5 mg 10/07/19 08:00 10/13/19 08:50 Diabeta PO 5 mg QAM-WM MELITA Administration Insulin Human Lispro 0 units 10/03/19 22:26 10/11/19 05:49 Humalog SC 2 unit .MILD SLIDING SCALE PRN Administration Mild Correctional Scale Lisinopril 20 mg 10/04/19 21:00 10/13/19 20:17 Zestril PO 20 mg QPM MELITA Administration Metformin HCl 1,000 mg 10/07/19 08:00 10/13/19 17:03 Glucophage PO 1,000 mg BID-WM MELITA Administration Pantoprazole Sodium 40 mg 10/04/19 09:00 10/13/19 08:52 Protonix PO 40 mg DAILY MELITA Administration Elviteg/Cob/Emtri/ 1 each 10/04/19 21:00 10/13/19 20:17 Tenof Alafen [ PO 1 each Genvoya Tablet] HS MELITA Administration Biofreeze Gel 0 each 10/12/19 15:51 10/12/19 16:50 TOP 1 each TIDPRN PRN Administration FOOT PAIN Senna/Docusate Sodium 2 tab 10/03/19 22:32 10/06/19 08:01 Senokot S PO 2 tab BIDPRN PRN Administration Constipation Sodium Chloride 10 ml 10/07/19 09:00 10/13/19 20:18 Flush - Normal Saline IVF 10 ml Q12HR MELITA Administration - Exam General Appearance: NAD Neck: supple, no JVD Heart: no murmur, no gallops, no rubs Respiratory: no wheezes, no rales, no ronchi Gastrointestinal: non-tender, non-distended Hosp A/P - Plan DVT proph w/lovenox, DVT proph w/SCDs Hosp A/P (1) Cellulitis of right leg Code(s): L03.115 - CELLULITIS OF RIGHT LOWER LIMB Status: Acute (2) Skin wound from surgical incision Code(s): T14.8XXA - OTHER INJURY OF UNSPECIFIED BODY REGION, INITIAL ENCOUNTER Status: Acute (3) HIV (human immunodeficiency virus infection) Status: Chronic Qualifiers: HIV symptom status: asymptomatic Qualified Code(s): Z21 - Asymptomatic human immunodeficiency virus [HIV] infection status (4) Hepatitis C antibody positive in blood Code(s): R76.8 - OTHER SPECIFIED ABNORMAL IMMUNOLOGICAL FINDINGS IN SERUM Status: Chronic (5) DM2 (diabetes mellitus, type 2) Status: Chronic Qualifiers: Diabetes mellitus superintendent terminal insulin use: without group home use (6) HTN (hypertension) Code(s): I10 - ESSENTIAL (PRIMARY) HYPERTENSION Status: Chronic Qualifiers: Hypertension type: essential hypertension Qualified Code(s): I10 - Essential (primary) hypertension (7) Morbid obesity Code(s): E66.01 - MORBID (SEVERE) OBESITY DUE TO EXCESS CALORIES Status: Chronic PLAN: Cont Colchicine Allopurinol started Prednisone today Cont HAART Cont Glyburide with Metformin Cont other meds as above
[2019-10-14] MEDS: metFORMIN 500 MG TAB PO SCH ×2 (09:06→17:10)
[2019-10-14] MEDS: Enoxaparin Sodium 40 MG/0.4 ML SYRINGE SC SCH (09:06)
[2019-10-14] MEDS: Atorvastatin Calcium 40 MG TAB PO SCH (09:07)
[2019-10-14] MEDS: glyBURIDE 5 MG TAB PO SCH (09:07)
[2019-10-14] MEDS: Colchicine 0.6 MG TAB PO SCH ×2 (09:07→21:15)
[2019-10-14] MEDS: Gabapentin 300 MG CAP PO SCH ×3 (09:07→21:15)
[2019-10-14] MEDS: Amlodipine 5 MG TAB PO SCH (09:07)
[2019-10-14] MEDS: Aspirin 81 mg Enteric Coated Tablet PO SCH (09:07)
--- NOTE | 2019-10-14 09:45 | PDOC.HOSPP ---
- Subjective Encounter Date: 10/14/19 Encounter Time: 09:44 Subjective: Patient seen and examined for medical twan. No new complaints. No overnight events. Swelling somewhat better, still has some pain. She usually walks at home with a walker, and she lives alone. Diarrhea better - Objective Vital Signs & Weight: Vital Signs (12 hours) Temp Pulse Resp BP Pulse Ox 10/14/19 09:07 91 10/14/19 07:48 97.7 F 91 20 116/67 97 10/14/19 07:40 97.7 F 90 22 H 134/77 96 Weight Admit Weight 408 lb 11.2 oz Weight 408 lb 11.2 oz I&O: 10/13/19 10/14/19 10/15/19 06:59 06:59 06:59 Intake Total 1830 500 Output Total 500 Balance 1830 0 Result Diagrams: 10/11/19 08:31 10/12/19 06:23 Additional Labs: Accuchecks 10/14/19 10/13/19 10/13/19 04:12 19:56 16:35 POC Glucose 198 H 107 77 10/13/19 11:38 POC Glucose 105 Hospitalist ROS - Review of Systems Constitutional: denies: fever, chills, sweats Gastrointestinal: denies: nausea, vomiting, abdominal pain, diarrhea Skin: denies: rash - Medication Medications: Active Medications Generic Name Dose Route Start Last Admin Trade Name Freq PRN Reason Stop Dose Admin Amlodipine Besylate 5 mg 10/04/19 09:00 10/14/19 09:07 Norvasc PO 5 mg DAILY MELITA Administration Aspirin 81 mg 10/04/19 09:00 10/14/19 09:07 Ecotrin PO 81 mg DAILY MELITA Administration Atorvastatin Calcium 40 mg 10/04/19 09:00 10/14/19 09:07 Lipitor PO 40 mg DAILY MELITA Administration Bisacodyl 10 mg 10/03/19 22:32 10/06/19 16:21 Dulcolax PO 10 mg DAILYPRN PRN Administration Constipation Colchicine 0.6 mg 10/11/19 09:00 10/14/19 09:07 Colchicine PO 0.6 mg DAILY MELITA Administration Cyclobenzaprine HCl 10 mg 10/03/19 21:58 10/13/19 20:15 Flexeril PO 10 mg HS PRN Administration Muscle Spasm Enoxaparin Sodium 40 mg 10/04/19 09:00 10/14/19 09:06 Lovenox SC 40 mg 0900 MELITA Administration Gabapentin 300 mg 10/08/19 15:00 10/14/19 09:07 Neurontin PO 300 mg TID MELITA Administration Glyburide 5 mg 10/07/19 08:00 10/14/19 09:07 Diabeta PO 5 mg QAM-WM MELITA Administration Insulin Human Lispro 0 units 10/03/19 22:26 10/11/19 05:49 Humalog SC 2 unit .MILD SLIDING SCALE PRN Administration Mild Correctional Scale Lisinopril 20 mg 10/04/19 21:00 10/13/19 20:17 Zestril PO 20 mg QPM MELITA Administration Metformin HCl 1,000 mg 10/07/19 08:00 10/14/19 09:06 Glucophage PO 1,000 mg BID-WM MELITA Administration Pantoprazole Sodium 40 mg 10/04/19 09:00 10/14/19 09:07 Protonix PO 40 mg DAILY MELITA Administration Elviteg/Cob/Emtri/ 1 each 10/04/19 21:00 10/13/19 20:17 Tenof Alafen [ PO 1 each Genvoya Tablet] HS MELITA Administration Biofreeze Gel 0 each 10/12/19 15:51 10/12/19 16:50 TOP 1 each TIDPRN PRN Administration FOOT PAIN Senna/Docusate Sodium 2 tab 10/03/19 22:32 10/06/19 08:01 Senokot S PO 2 tab BIDPRN PRN Administration Constipation Sodium Chloride 10 ml 10/07/19 09:00 10/14/19 09:07 Flush - Normal Saline IVF 10 ml Q12HR MELITA Administration - Exam Respiratory: CTAB, no wheezes, no rales Gastrointestinal: soft, non-distended, normal bowel sounds, tender to palpation (Where she was given injection) Extremities: 1+ LE edema Psychiatric: A&O x 3 Hosp A/P - Plan Hosp A/P (1) Cellulitis of right leg Code(s): L03.115 - CELLULITIS OF RIGHT LOWER LIMB Status: Acute (2) Skin wound from surgical incision Code(s): T14.8XXA - OTHER INJURY OF UNSPECIFIED BODY REGION, INITIAL ENCOUNTER Status: Acute (3) HIV (human immunodeficiency virus infection) Status: Chronic Qualifiers: HIV symptom status: asymptomatic Qualified Code(s): Z21 - Asymptomatic human immunodeficiency virus [HIV] infection status (4) Hepatitis C antibody positive in blood Code(s): R76.8 - OTHER SPECIFIED ABNORMAL IMMUNOLOGICAL FINDINGS IN SERUM Status: Chronic (5) DM2 (diabetes mellitus, type 2) Status: Chronic Qualifiers: Diabetes mellitus long-term insulin use: without superintendent container terminal use (6) HTN (hypertension) Code(s): I10 - ESSENTIAL (PRIMARY) HYPERTENSION Status: Chronic Qualifiers: Hypertension type: essential hypertension Qualified Code(s): I10 - Essential (primary) hypertension (7) Morbid obesity Code(s): E66.01 - MORBID (SEVERE) OBESITY DUE TO EXCESS CALORIES Status: Chronic PLAN: Cont Colchicine Allopurinol started Cont Prednisone Cont HAART Cont Glyburide with Metformin Cont other meds as above Will call box builder to see if can visit again
[2019-10-14] MEDS ORDERED: traMADol HCl 50 MG TAB PO PRN (12:52)
[2019-10-14] MEDS: traMADol HCl 50 MG TAB PO PRN (13:43)
[2019-10-14] MEDS: Acetaminophen 325 MG TAB PO SCH ×2 (15:18→21:15)
[2019-10-14] MEDS: Ibuprofen 200 MG TAB PO SCH ×2 (15:18→21:16)
--- NOTE | 2019-10-14 17:10 | PRG ---
DATE OF SERVICE: 10/14/2019 SUBJECTIVE: Ms. Diallo is having worsening pain in the left foot this time, the right foot is perfectly fine. She still has a hard time in ambulating because of the left foot. The pain is mostly across the midfoot region, now the dorsal aspect when she steps on it. She still has tenderness in the first MPJ and heel region as well. No respiratory symptoms or abdominal pain. No diarrhea. No genitourinary symptoms. OBJECTIVE: VITAL SIGNS: She has been afebrile. Blood pressure 116/67, pulse 91, respirations 20, O2 saturations 97%. EXTREMITIES: The foot is not erythematous. There is no drainage. No swelling in the left side. The right side is normal without tenderness. There is still quite a bit of tenderness in the first MPJ and across the dorsum of the midfoot region and also tenderness in the plantar region close to the heel area. LUNGS: Clear. HEART: S1 and S2, regular rate. ABDOMEN: Soft, not distended or tender. LABORATORY DATA: White cell count is 4.3, hemoglobin 10.4, platelets of 307. Blood cultures, no growth final report. She is on colchicine once a day. ASSESSMENT AND DISCUSSION: Longstanding human immunodeficiency virus infection, well controlled with excellent adherence to antiretroviral therapy; obesity; hyperuricemia with likely gouty arthritis. Initially, all the attention was geared towards the right foot, which has improved now, but now the left foot has deteriorated for some reason. Regarding the image, we will do x-ray of the left foot and see what it shows there, may have to order an MRI there as well. Job ID: [id number]
--- NOTE | 2019-10-14 17:38 | RAD ---
Exam: XR Foot Lt 2 View HISTORY: Left foot pain. COMPARISON: 04/15/2019 FINDINGS: Degenerative changes are again seen at the level of the mid foot. Posterior plantar calcaneal entheso phytes are seen. The toes are held in flexion on the AP projection. No acute fracture, dislocation, or other acute osseous abnormality is identified. Vascular calcifications are seen at the level of the ankle and in the foot. There has been no significant interval change from prior study. IMPRESSION: No acute osseous abnormality is identified. If there is persistent clinical concern, conservative man agement and follow-up imaging is advised.
[2019-10-14] MEDS: Lisinopril 20 MG TAB PO SCH (21:16)
[2019-10-14] MEDS: Elviteg/Cob/Emtri/Tenof Alafen [Genvoya Tablet] PO SCH (21:17)
[2019-10-15 07:59] VITALS: BP 133/89; TEMP 97.9
[2019-10-15] MEDS ORDERED: predniSONE 5 MG TAB PO SCH (08:00)
[2019-10-15] MEDS: Amlodipine 5 MG TAB PO SCH (09:15)
[2019-10-15] MEDS: Aspirin 81 mg Enteric Coated Tablet PO SCH (09:15)
[2019-10-15] MEDS: Atorvastatin Calcium 40 MG TAB PO SCH (09:15)
[2019-10-15] MEDS: Gabapentin 300 MG CAP PO SCH (09:15)
[2019-10-15] MEDS: Ibuprofen 200 MG TAB PO SCH (09:15)
[2019-10-15] MEDS: Colchicine 0.6 MG TAB PO SCH (09:15)
[2019-10-15] MEDS: Enoxaparin Sodium 40 MG/0.4 ML SYRINGE SC SCH (09:15)
[2019-10-15] MEDS: metFORMIN 500 MG TAB PO SCH (09:16)
[2019-10-15] MEDS: glyBURIDE 5 MG TAB PO SCH (09:16)
[2019-10-15] MEDS: Acetaminophen 325 MG TAB PO SCH (09:16)
[2019-10-15] MEDS: Cyclobenzaprine 10 MG TAB PO PRN (11:59)
[2019-10-15] MEDS: traMADol HCl 50 MG TAB PO PRN (11:59)
--- NOTE | 2019-10-16 12:01 | DIS ---
DATE OF ADMISSION: 10/03/2019 DATE OF DISCHARGE: 10/15/2019 DISCHARGE DISPOSITION: Home. FOLLOWUP: 1. Follow up with primary care physician, Dr. Lozoya in 1 week. 2. Follow up with Infectious Disease, Dr. Garcia. 3. The patient was also advised to follow up with General Surgery as outpatient. ALLERGIES: NO KNOWN DRUG ALLERGIES. DISCHARGE MEDICATIONS: 1. Allopurinol 100 mg daily. 2. Colchicine 0.6 mg twice daily for 1 week, then 0.6 mg daily for total of two weeks. 3. Tramadol as needed. 4. All other home medications were left unchanged. BRIEF HOSPITAL COURSE: The patient is a 49-year-old female with multiple medical issues including diabetes mellitus type 2, hypertension, HIV and hepatitis C, presented to the emergency room with right foot pain. Please refer to the history and physical for further details. The patient was admitted to the hospital with a diagnosis of right foot cellulitis. CT scan of the right lower extremity showed nonspecific diffuse subcutaneous edema/cellulitis without any fractures or dislocation. She was started on empiric antibiotics. She was evaluated by Infectious Disease, Dr. Garcia. Dr. Garcia felt that the patient probably has flare of gout. She later on started complaining of left foot pain along with difficulty ambulating. She was started on colchicine along with steroids. Symptoms have significantly improved. The patient was advised to follow up with Podiatry as outpatient. Her x-ray of the foot was negative for acute fractures or dislocation. She also had echocardiogram that showed ejection fraction of 50% to 55%. She has been cleared by consultants for discharge. FINAL DIAGNOSES: 1. Right foot cellulitis, completed antibiotics. 2. Acute gout flare, present on admission. 3. Human immunodeficiency viruses. 4. Chronic hepatitis C. 5. Diabetes mellitus, type 2. 6. Hypertension. 7. Morbid obesity with a BMI of 70.2. 8. Skin breakdown at the pannus, likely due to shear injury. The patient was evaluated by General Surgery, who recommended cleanliness along with wound dressing. 9. The patient understands the above plan of care. Job ID: [id number]
== END 2019-10-15 15:37 | disposition home or self-care (01) | DRG 603 ==
LOC: ERS 14:04 → T4-B 17:46
PROVIDERS: ADMIT Internal Medicine; ATTEND Internal Medicine
DX: L03.115 Cellulitis of right lower limb (principal); Z68.45 Body mass index [BMI] 70 or greater, adult; L02.611 Cutaneous abscess of right foot; Z21 Asymptomatic human immunodeficiency virus [HIV] infection status; M10.9 Gout, unspecified; E66.01 Morbid (severe) obesity due to excess calories; B18.2 Chronic viral hepatitis C; G40.909 Epilepsy, unspecified, not intractable, without status epilepticus; J45.909 Unspecified asthma, uncomplicated; I12.9 Hypertensive chronic kidney disease with stage 1 through stage 4 chronic kidney disease, or unspecified chronic kidney disease; N18.3 Chronic kidney disease, stage 3 (moderate); E11.22 Type 2 diabetes mellitus with diabetic chronic kidney disease; F31.9 Bipolar disorder, unspecified; T14.8XXA Other injury of unspecified body region, initial encounter; Z79.4 Long term (current) use of insulin; Z90.49 Acquired absence of other specified parts of digestive tract; Z98.51 Tubal ligation status; Z87.891 Personal history of nicotine dependence
CPT/HCPCS: 36415; 36416; 51701; 71045; 80048; 80053; 80202; 81003; 81015; 83605; 83880; 84550; 85025; 85048; 86361; 87040; 87086; 87536; 93005; 93306; 96361; 96365; 96366; 96367; 96374; A4353; J0295; J0692; J0696; J1650; J2270; J2405; J3370; J3490; J7050; J7512; Q9967

== ENCOUNTER 2022-09-08 11:43 | Observation (INO) | payer OTHER ==
[2022-09-08] MEDS ORDERED: Acetaminophen 500 MG TAB ONE (12:22)
[2022-09-08] MEDS ORDERED: Morphine 4 MG/ML VIAL ONE (12:49)
[2022-09-08] MEDS ORDERED: Ketorolac Tromethamine 30 MG/ML VIAL ONE (12:49)
[2022-09-08] MEDS ORDERED: Lidocaine 1% PF 5 ML VIAL ONE (13:32)
[2022-09-08 14:15] LABS: #Basophils 0.1 thou/uL (0.0-0.2); #Lymphocytes 2.6 thou/uL (1.20-3.40); #Monocytes 0.4 thou/uL (0.11-0.59); #Neutrophils 6.2 thou/uL (1.40-6.50); %Basophils 0.6 % (0.0-1.0); %Eosinophils 0.3 % (0.0-10.0); %Lymphocytes 28.1 % (21.0-51.0); %Monocytes 3.9 % (0.0-10.0); %Neutrophils 67.2 % (42.0-75.0); Mean Corpuscular HGB CONC 32.5 g/dL (32.0-36.0); Mean Corpuscular Hemoglobin 32.3 pg (27.0-31.0); Mean Corpuscular Volume 99.4 fl (78.0-98.0); Mean Platelet Volume 7.6 fL (7.4-10.4); Platelet Count 259 10x3/uL (130-400); RBC Distribution Width 13.5 % (11.5-14.5); Red Blood Cell (RBC) Count 4.66 mill/uL (4.20-5.40); White Blood Cell (WBC) Count 9.3 10x3/uL (4.8-10.8)
[2022-09-08 14:41] LABS: ALT (SGPT) 13 U/L (8-55); AST (SGOT) 19 U/L (5-34); Albumin 4.3 g/dL (3.5-5.0); Alkaline Phosphatase 115 U/L (40-110); Anion Gap 17 mmol/L (10-20); BUN (Urea Nitrogen) 12 mg/dL (9.8-20.1); Bilirubin, Total 0.6 mg/dL (0.2-1.2); Calc. Creatinine Clearance 0 mL/min (70-130); Calcium 10.4 mg/dL (7.8-10.44); Carbon Dioxide 19 mmol/L (22-29); Chloride 104 mmol/L (98-107); Estimated GFR 51; Globulin 6.2 g/dL (2.4-3.5); Glucose 159 mg/dL (70-105); Potassium 3.2 mmol/L (3.5-5.1); Protein, Total 10.5 g/dL (6.0-8.3); Sodium 137 mmol/L (136-145)
[2022-09-08 14:42] LABS: BF Color Yellow; Body Fluid Source Synovial Fluid; Clarity Cloudy/Turbid (Clear)
[2022-09-08 15:16] LABS: Cell Count Non Hematic 20 %
[2022-09-08 15:18] LABS: Segmented Neutrophils 79 %
[2022-09-08] MEDS ORDERED: cefTRIAXone\\ROCEPHIN 2 GM VIAL ONE (16:57)
[2022-09-08] MEDS ORDERED: Dextrose 5% in Water 1,000 ML IV PRN (17:12)
[2022-09-08] MEDS ORDERED: Acetaminophen 325 MG TAB PO PRN (17:12)
[2022-09-08] MEDS ORDERED: Dextrose 50% Abboject 50 ML SYRINGE SLOW IVP PRN (17:12)
[2022-09-08] MEDS ORDERED: HumaLOG 300 UNITS/3 ML VIAL SC PRN ×2 (17:15)
[2022-09-08] MEDS ORDERED: VANCOMYCIN 2 GRAM/500 ML BAG 2 GM in Premix Bag 1 BAG IVPB SCH (17:15)
[2022-09-08] MEDS ORDERED: Potassium Chloride 20 MEQ TAB PO SCH (17:30)
[2022-09-08] MEDS ORDERED: Colchicine 0.6 MG TAB PO SCH (17:30)
[2022-09-08] MEDS ORDERED: Famotidine 20 MG TAB PO PRN (19:34)
[2022-09-08 19:41] VITALS: BMI 49.1
[2022-09-08] MEDS ORDERED: Atorvastatin Calcium 40 MG TAB PO SCH (21:00)
[2022-09-09 07:38] LABS: #Basophils 0.1 thou/uL (0.0-0.2); #Lymphocytes 1.8 thou/uL (1.20-3.40); #Monocytes 0.5 thou/uL (0.11-0.59); #Neutrophils 3.8 thou/uL (1.40-6.50); %Basophils 1.3 % (0.0-1.0); %Eosinophils 0.5 % (0.0-10.0); %Lymphocytes 29.2 % (21.0-51.0); %Monocytes 7.3 % (0.0-10.0); %Neutrophils 61.8 % (42.0-75.0); Hemoglobin 13.9 g/dL (12.0-16.0); Mean Corpuscular HGB CONC 34.1 g/dL (32.0-36.0); Mean Corpuscular Hemoglobin 33.5 pg (27.0-31.0); Mean Corpuscular Volume 98.2 fl (78.0-98.0); Mean Platelet Volume 7.6 fL (7.4-10.4); Platelet Count 251 10x3/uL (130-400); RBC Distribution Width 13.5 % (11.5-14.5); Red Blood Cell (RBC) Count 4.15 mill/uL (4.20-5.40); White Blood Cell (WBC) Count 6.2 10x3/uL (4.8-10.8)
[2022-09-09 07:59] LABS: ALT (SGPT) 7 U/L (8-55); AST (SGOT) 14 U/L (5-34); Albumin 3.5 g/dL (3.5-5.0); Alkaline Phosphatase 89 U/L (40-110); Anion Gap 14 mmol/L (10-20); BUN (Urea Nitrogen) 13 mg/dL (9.8-20.1); Bilirubin, Total 0.5 mg/dL (0.2-1.2); Calc. Creatinine Clearance 104 mL/min (70-130); Calcium 9.4 mg/dL (7.8-10.44); Carbon Dioxide 19 mmol/L (22-29); Chloride 108 mmol/L (98-107); Estimated GFR 49; Globulin 4.8 g/dL (2.4-3.5); Glucose 160 mg/dL (70-105); Potassium 3.8 mmol/L (3.5-5.1); Protein, Total 8.3 g/dL (6.0-8.3); Sodium 137 mmol/L (136-145)
[2022-09-09] MEDS ORDERED: Allopurinol 100 MG TAB PO SCH (09:00)
[2022-09-09] MEDS ORDERED: Aspirin 81 mg Enteric Coated Tablet PO SCH (09:00)
[2022-09-09] MEDS ORDERED: Bictegrav/Emtricit/Tenofov Ala [Biktarvy 50-200-25 Mg Tablet] PO SCH (09:00)
[2022-09-09] MEDS ORDERED: Insulin Glargine 30 UNITS/0.3 ML VIAL SC SCH (09:00)
[2022-09-09] MEDS ORDERED: Lisinopril 20 MG TAB PO SCH (09:00)
[2022-09-09] MEDS ORDERED: Empagliflozin 25 MG TAB PO SCH (09:00)
[2022-09-09 09:10] VITALS: TEMP 97.9
[2022-09-09 11:12] LABS: HBSAg Index 0.27 S/CO (0-0.99); Hep A IgM AB Non-Reactive (NonReactive); Hep A IgM S/CO 0.13 S/CO (0-0.79); Hep B Surf Ag Non-Reactive S/CO (NonReactive); Hep C IgG Ab Non-Reactive (NonReactive); Hep C Index 0.35 S/CO (0-0.79); Hepatitis B Core IgM Abs Non-Reactive (NonReactive)
[2022-09-09 11:50] VITALS: BP 129/76
[2022-09-09 15:18] LABS: Syphilis Antibody Nonreactive (Nonreactive); Syphilis Antibody Index 0.07 S/CO (<1.00 Non-Reactive)
[2022-09-09] MEDS ORDERED: PATIENT'S HOME MEDICATION PO SCH (21:00)
[2022-09-10 16:50] LABS: ANA Symphony (Qualitative) Negative (Negative); ANA Symphony (Quantitative) 0.5 Ratio (< 0.7 Negative); EliA RAS New Method **** NEW METHOD ****; dsDNA IgG Antibody 4.5 IU/mL (<10 Negative)
[2022-09-11] MEDS ORDERED: FLU VACC QS2022-23(6MOS UP)/PF 60 MCG/0.5 ML SYRINGE IM ONE (09:00)
[2022-09-11 16:13] LABS: %CD4 (Helper/Inducer) 42.7 % (30.8-58.5); Absolute CD4 683 /uL (359-1519); Lymphocytes/Gated Cell Count 1.6 x10E3/uL (0.7-3.1); Total Lymphocyte 26 % (Not Estab.); WBC Total Count 5.9 x10E3/uL (3.4-10.8)
[2022-09-13 15:39] LABS: LOG10 HIV-1 RNA 1.301 (.)
== END 2022-09-09 12:55 | disposition home or self-care (01) ==
LOC: ERS 11:43 → ERHOLD 16:41 → INTOOBSV 16:41 → T4-A 19:16
PROVIDERS: ADMIT Family Medicine; ATTEND Family Medicine
DX: M12.821 Other specific arthropathies, not elsewhere classified, right elbow (principal); M12.831 Other specific arthropathies, not elsewhere classified, right wrist; E87.6 Hypokalemia; K21.9 Gastro-esophageal reflux disease without esophagitis; E78.5 Hyperlipidemia, unspecified; M10.9 Gout, unspecified; F17.290 Nicotine dependence, other tobacco product, uncomplicated; F14.11 Cocaine abuse, in remission; I12.9 Hypertensive chronic kidney disease with stage 1 through stage 4 chronic kidney disease, or unspecified chronic kidney disease; E11.22 Type 2 diabetes mellitus with diabetic chronic kidney disease; N18.31 Chronic kidney disease, stage 3a; J45.909 Unspecified asthma, uncomplicated; R56.9 Unspecified convulsions; E66.9 Obesity, unspecified; Z68.42 Body mass index [BMI] 45.0-49.9, adult; Z21 Asymptomatic human immunodeficiency virus [HIV] infection status; Z79.4 Long term (current) use of insulin; Z79.82 Long term (current) use of aspirin; Z79.85 Long-term (current) use of injectable non-insulin antidiabetic drugs; Z79.899 Other long term (current) drug therapy; Z88.8 Allergy status to other drugs, medicaments and biological substances
CPT/HCPCS: 20605; 36415; 36416; 80053; 80074; 83520; 84550; 85025; 85060; 85652; 86038; 86140; 86225; 86361; 86780; 87536; 89051; 89060; 96374; 96375; G0378; J0696; J1815; J1885; J2270; U0003; U0005

== ENCOUNTER 2022-11-01 16:31 | Emergency (ER) | payer OTHER ==
[2022-11-01 17:33] LABS: #Basophils 0.1 thou/uL (0.0-0.2); #Lymphocytes 2.5 thou/uL (1.20-3.40); #Monocytes 0.4 thou/uL (0.11-0.59); #Neutrophils 4.8 thou/uL (1.40-6.50); %Basophils 0.8 % (0.0-1.0); %Eosinophils 0.2 % (0.0-10.0); %Lymphocytes 31.9 % (21.0-51.0); %Monocytes 4.9 % (0.0-10.0); %Neutrophils 62.1 % (42.0-75.0); Hemoglobin 16.2 g/dL (12.0-16.0); Mean Corpuscular HGB CONC 32.8 g/dL (32.0-36.0); Mean Corpuscular Hemoglobin 32.5 pg (27.0-31.0); Mean Corpuscular Volume 98.9 fl (78.0-98.0); Mean Platelet Volume 7.2 fL (7.4-10.4); Platelet Count 247 10x3/uL (130-400); RBC Distribution Width 13.3 % (11.5-14.5); Red Blood Cell (RBC) Count 4.98 mill/uL (4.20-5.40); White Blood Cell (WBC) Count 7.7 10x3/uL (4.8-10.8)
[2022-11-01 17:50] LABS: ALT (SGPT) 17 U/L (8-55); AST (SGOT) 22 U/L (5-34); Alkaline Phosphatase 127 U/L (40-110); Anion Gap 15 mmol/L (10-20); BUN (Urea Nitrogen) 9 mg/dL (9.8-20.1); Bilirubin, Total 0.6 mg/dL (0.2-1.2); Calc. Creatinine Clearance 0 mL/min (70-130); Calcium 9.9 mg/dL (7.8-10.44); Carbon Dioxide 21 mmol/L (22-29); Chloride 105 mmol/L (98-107); Estimated GFR 46; Globulin 5.5 g/dL (2.4-3.5); Glucose 152 mg/dL (70-105); Potassium 3.5 mmol/L (3.5-5.1); Protein, Total 9.5 g/dL (6.0-8.3); Sodium 137 mmol/L (136-145)
[2022-11-01] MEDS ORDERED: Acetaminophen 500 MG TAB ONE (17:50)
[2022-11-01] MEDS ORDERED: Morphine 4 MG/ML VIAL ONE (17:50)
[2022-11-01] MEDS ORDERED: Ketorolac Tromethamine 30 MG/ML VIAL ONE (17:50)
[2022-11-01 17:52] LABS: PTT 24.6 sec (22.9-36.1); Prothrombin Time 13.4 sec (12.0-14.7)
[2022-11-01] MEDS ORDERED: Ondansetron PF 4 MG/2 ML Vial ONE (20:07)
[2022-11-01] MEDS ORDERED: Lidocaine 1% w/Epinephrine 1:100K 20 ML VIAL ONE (20:40)
[2022-11-01] MEDS ORDERED: Colchicine 0.6 MG TAB PO SCH (23:59)
[2022-11-02] LABS: RBC Count-Automated (BF) 2483 /cu.mm; WBC/Nucleated-Auto (BF) 6024 /cu.mm
[2022-11-02 00:02] LABS: BF Color Yellow; Body Fluid Source Synovial Fluid; Clarity Cloudy/Turbid (Clear); Tube # 1
[2022-11-02 00:07] LABS: BF Segmented Neutrophils 80 %; Cell Count Non Hematic 20 %
== END 2022-11-02 00:33 | disposition home or self-care (01) ==
LOC: ERS 16:31
DX: M17.11 Unilateral primary osteoarthritis, right knee (principal); E11.22 Type 2 diabetes mellitus with diabetic chronic kidney disease; I12.9 Hypertensive chronic kidney disease with stage 1 through stage 4 chronic kidney disease, or unspecified chronic kidney disease; N18.9 Chronic kidney disease, unspecified; F17.220 Nicotine dependence, chewing tobacco, uncomplicated; Z79.899 Other long term (current) drug therapy; Z79.84 Long term (current) use of oral hypoglycemic drugs; Z79.4 Long term (current) use of insulin
CPT/HCPCS: 36415; 80053; 82945; 84157; 85025; 85060; 85610; 85652; 85730; 86140; 87070; 87081; 87205; 89051; 89060; 96374; 96375; J1885; J2270; J2405

== ENCOUNTER 2023-09-14 12:08 | Emergency (ER) | payer OTHER ==
[2023-09-14] MEDS ORDERED: Morphine 4 MG/ML VIAL ONE (14:43)
[2023-09-14] MEDS ORDERED: Lidocaine 1% w/Epinephrine 1:100K 20 ML VIAL ONE (14:43)
[2023-09-14 15:02] LABS: #Monocytes 0.4 thou/uL (0.11-0.59); #Neutrophils 3.5 thou/uL (1.40-6.50); %Basophils 0.5 % (0.0-1.0); %Lymphocytes 34.7 % (21.0-51.0); %Monocytes 6.5 % (0.0-10.0); %Neutrophils 58.1 % (42.0-75.0); Hematocrit 43.4 % (36.0-47.0); Hemoglobin 14.1 g/dL (12.0-16.0); Mean Corpuscular HGB CONC 32.5 g/dL (32.0-36.0); Mean Corpuscular Volume 98.6 fl (78.0-98.0); Mean Platelet Volume 9.2 fL (7.4-10.4); Platelet Count 216 10x3/uL (130-400); RBC Distribution Width 14.3 % (11.5-14.5)
[2023-09-14 15:30] LABS: ALT (SGPT) 13 U/L (8-55); AST (SGOT) 17 U/L (5-34); Albumin 3.5 g/dL (3.5-5.0); Alkaline Phosphatase 108 U/L (40-110); Anion Gap 13 mmol/L (10-20); BUN (Urea Nitrogen) 14 mg/dL (9.8-20.1); Bilirubin, Total 0.5 mg/dL (0.2-1.2); Calc. Creatinine Clearance 0 mL/min (70-130); Calcium 8.8 mg/dL (7.8-10.44); Carbon Dioxide 23 mmol/L (22-29); Chloride 108 mmol/L (98-107); Estimated GFR 48; Globulin 4.4 g/dL (2.4-3.5); Glucose 114 mg/dL (70-105); Potassium 3.7 mmol/L (3.5-5.1); Protein, Total 7.9 g/dL (6.0-8.3); Sodium 140 mmol/L (136-145)
[2023-09-14] MEDS ORDERED: Ketorolac Tromethamine 30 MG (1 mL) VIAL ONE (16:54)
[2023-09-14 18:16] LABS: BF Color Yellow; BF RBC Count - Manual 470 /cu.mm; BF WBC/Nonhematics Ct.-Manual 503 /cu.mm; Body Fluid Source Synovial Fluid; Clarity Hazy (Clear); Tube # EDTA
[2023-09-14 18:37] LABS: BF Segmented Neutrophils 22 %; Cell Count Non Hematic 64 %; Lymphocytes 14 %
== END 2023-09-14 18:34 | disposition home or self-care (01) ==
LOC: ERS 12:08
DX: M25.461 Effusion, right knee (principal); I10 Essential (primary) hypertension; E11.9 Type 2 diabetes mellitus without complications; F17.220 Nicotine dependence, chewing tobacco, uncomplicated; Z79.4 Long term (current) use of insulin; Z79.899 Other long term (current) drug therapy
CPT/HCPCS: 20610; 36415; 80053; 82945; 83605; 84157; 85025; 85060; 86140; 87040; 87070; 87205; 89051; 89060; 96374; 96375; J1885; J2270